=== PATIENT | male | born 1980 | race Caucasian/White ===

== ENCOUNTER → 2020-03-31 08:59 | Outpatient (BNVA) | payer MEDICAID, SELFPAY | PROVIDERS: Visit Provider Nurse Practitioner Family | DX: R55 Syncope and collapse (principal); R00.1 Bradycardia, unspecified | CPT/HCPCS: 36416; 82962 ==

== ENCOUNTER → 2020-08-23 15:59 | Outpatient (BNVA) | payer MEDICAID, SELFPAY | PROVIDERS: PCP Nurse Practitioner Family; Visit Provider Nurse Practitioner Family | DX: R07.9 Chest pain, unspecified (principal); I10 Essential (primary) hypertension; K21.9 Gastro-esophageal reflux disease without esophagitis | CPT/HCPCS: 80053; 80061; 84484; 85025 ==

== ENCOUNTER → 2020-08-24 09:22 | Outpatient (BNVA) | payer MEDICAID, SELFPAY | PROVIDERS: PCP Nurse Practitioner Family; Visit Provider Nurse Practitioner Family | DX: R07.9 Chest pain, unspecified (principal) | CPT/HCPCS: 71046 ==

== ENCOUNTER 2020-08-26 00:07 | Emergency (ER) | payer BC, MEDICAID, SELFPAY ==
[2020-08-26 00:10] VITALS: BP 114/70; PULSE 87; RESP 16; TEMP 36.8; O2SAT 98; BMI 31.0
--- NOTE | 2020-08-26 00:10 | ECG_ITS ---
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 Measurements Intervals [place] Rate: 60 P: 47 [place]: 155 QRS: 64 QRSD: 97 T: 60 QT: 369 QTc: 371 Interpretive Statements SINUS RHYTHM INTERPRETATION BASED ON A DEFAULT AGE OF 40 YEARS No previous ECG available for comparison Electronically Signed On 08-26-2020 18:28:39 WOOD SCRAP HANDLER by Michael Munoz M.D. [id number]
--- NOTE | 2020-08-26 00:10 | XR_ITS ---
WS: [id number] Exam: XR chest 1V portable [id number] Date/Time of Exam: 08/26/2020 12:11 AM Reason For Exam: cp Comparison 08/24/2020. Findings: The lungs are clear and fully expanded. Costophrenic angles are sharp. No infiltrates. Bronchovascula r relief appears normal. Cardiac silhouette is unremarkable. Bony elements are intact. XR/XR chest 1V portable [id number] IMPRESSION: Unremarkable chest radiograph.
--- NOTE | 2020-08-26 00:13 | W.ED.CHESTPA ---
HPI - Chest Pain General: Chief Complaint: Chest Pain Stated Complaint: chest pain Time Seen by Provider: 08/26/20 00:10 Source: patient and EMS Mode of arrival: EMS Limitations: no limitations History of Present Illness: HPI narrative: Celestine is a 40-year-old male who states he has been having chest pain since Saturday. He states is been episodic. He states that his left check and got worse tonight. He states that it radiates to his left arm. He states his pain is currently a 4 out of 10. Denies any worsening improving factors. Denies any nausea or shortness of breath. He does have a history of high blood pressure. He is a smoker. He denies any family history of heart disease. MD complaint: chest pain Onset (ago): day(s) Timing of current episode: episodic Associated symptoms: Deny abdominal pain, dyspnea, fever(s), nausea or vomiting Review of Systems Const: Denies: fever(s), chills, body aches or change in appetite Eyes: Denies: blurry vision or eye discomfort ENMT: Denies: throat pain or dental pain Card: Reports: chest pain Resp: Denies: dyspnea GI: Denies: abdominal pain, nausea, vomiting or diarrhea : Denies: dysuria Musc: Denies: neck pain or back pain Skin/Breast: Denies: rash Neuro: Denies: headache(s) Psych: Denies: depression Mic/Lymph: Denies: easy bruising All/Imm: Denies: urticaria PFSH ED PFSH: Medical History Essential hypertension Family History Other Chronic kidney disease (CKD) Diabetes Hypertension Social History Smoking and tobacco status: current every day smoker Alcohol intake: current Alcohol intake frequency: few times a month Adopted: No Lives independently: Yes Household members: spouse Housing: Manufactured/Mobile home Marital status: Highest education level completed: High School Graduate Current occupational status: employed 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 Current gender identity: Male Physical Exam Const: COMMON NORMALS: no acute distress, patient oriented x3 and healthy appearing HENMT: COMMON NORMALS: normocephalic and atraumatic HEAD & SCALP: normocephalic and atraumatic Eye: COMMON NORMALS: Equal, round and reactive pupils present and EOMs intact bilaterally PUPIL: Yes Equal, round and reactive pupils present Neck/C-Spine: COMMON NORMALS: full ROM and supple Chest: COMMONS NORMALS: normal inspection of the chest and normal palpation of entire chest wall Resp: COMMON NORMALS: normal respiratory effort, No retractions, No use of accessory muscles and clear to auscultation bilaterally AUSCULTATION: clear to auscultation bilaterally Cardio: COMMON NORMALS: regular rate, regular rhythm and No murmurs present (Cardio) RATE: regular rate RHYTHM: regular rhythm GI: COMMON NORMALS: Normal to inspection, nondistended, normoactive bowel sounds present, Soft to palpation, non-tender and no masses PALPATION: Yes Soft to palpation Extremity: COMMON NORMALS: normal to inspection and full ROM Neuro: COMMON NORMALS: patient oriented x3, moves all extremities and no focal motor deficits Psych: COMMON NORMALS: mental status grossly normal, Normal thought process present and cooperative THOUGHT PROCESS: Normal thought process present Skin: COMMON NORMALS: no rashes or lesions noted and no wounds GENERAL SKIN EXAM: no rashes or lesions noted Course Vital Signs: Vital signs: Vital Signs Temperature 98.3 F 08/26/20 00:10 Pulse Rate 87 08/26/20 00:10 Respiratory Rate 16 08/26/20 00:10 Blood Pressure 114/70 08/26/20 00:10 Pulse Oximetry 98 08/26/20 00:10 MDM - Chest Pain MDM Narrative: Medical decision making narrative: Patient presents here with chest pain. Patient is young is well-appearing here. Initial EKG and initial repeat troponins here are negative. He has no signs of acute coronary syndrome. Patient has no signs of pulmonary embolism or aortic dissection. Does have a slight leukocytosis but no signs of any infection and no fever or cough. Patient has follow-up with cardiology Lab Data: Labs: Lab Results 08/26/20 08/26/20 08/26/20 Range/Units 00:17 00:17 00:17 WBC 18.4 H (4.0-10.0) 10^3/ uL RBC 5.13 (4.1-5.3) 10^6/u L Hgb 15.2 (11.7-16.6) g/dL Hct 45.5 (42.0-52.0) % MCV 88.7 (80-94) fL MCH 29.6 (28.0-34.0) pg MCHC 33.4 (30.0-36.0) g/dL RDW 13.2 (12.1-15.1) % Plt Count 352 (130-400) 10^3/c mm MPV 9.7 (7.4-10.4) fL Neut % (Auto) 75.1 % Lymph % (Auto) 13.8 % Carlton % (Auto) 8.7 % Eos % (Auto) 1.4 % Baso % (Auto) 0.5 % Neut # (Auto) 13.87 H (1.8-7.7) 10^3/u L Lymph # (Auto) 2.5 (0.8-4.8) 10^3/u L Carlton # (Auto) 1.6 H (0.2-0.9) 10^3/u L Eos # (Auto) 0.3 (0.0-0.8) 10^3/u L Baso # (Auto) 0.1 (0.0-0.1) 10^3/u L Nucleated RBC % (a uto) 0 % Nucleated RBCs # 0.0 /100WBC Sodium 140 (136-145) mmol/L Potassium 3.8 (3.5-5.1) mmol/L Chloride 106 (98-107) mmol/L Carbon Dioxide 25 (22-29) mmol/L Anion Gap 12.8 (5-19) BUN 9 (6-20) mg/dL Creatinine 0.8 (0.7-1.2) mg/dL GFR Calculation 107.6 (90-130) mL/min Glucose 104 (65-115) mg/dL Calculated Osmolal ity 289 (285-295) mOsm/k g Calcium 9.6 (8.5-10.5) mg/dL Total Bilirubin 0.2 (0.15-1.2) mg/dL AST 17 (0-40) U/L ALT 28 (0-41) U/L Alkaline Phosphata se 133 H (40-130) IU/L Troponin T Baselin e 6 (0-15) ng/L Troponin T 120 Min altagracia (0-15) ng/L Delta Troponin T (0-10) ABS# Total Protein 6.9 (6.6-8.7) g/dL Albumin 4.4 (3.5-5.2) g/dL Globulin 2.5 (1.3-4.6) g/dL 08/26/20 Range/Units 02:15 WBC (4.0-10.0) 10^3/ uL RBC (4.1-5.3) 10^6/u L Hgb (11.7-16.6) g/dL Hct (42.0-52.0) % MCV (80-94) fL MCH (28.0-34.0) pg MCHC (30.0-36.0) g/dL RDW (12.1-15.1) % Plt Count (130-400) 10^3/c mm MPV (7.4-10.4) fL Neut % (Auto) % Lymph % (Auto) % Carlton % (Auto) % Eos % (Auto) % Baso % (Auto) % Neut # (Auto) (1.8-7.7) 10^3/u L Lymph # (Auto) (0.8-4.8) 10^3/u L Carlton # (Auto) (0.2-0.9) 10^3/u L Eos # (Auto) (0.0-0.8) 10^3/u L Baso # (Auto) (0.0-0.1) 10^3/u L Nucleated RBC % (a uto) % Nucleated RBCs # /100WBC Sodium (136-145) mmol/L Potassium (3.5-5.1) mmol/L Chloride (98-107) mmol/L Carbon Dioxide (22-29) mmol/L Anion Gap (5-19) BUN (6-20) mg/dL Creatinine (0.7-1.2) mg/dL GFR Calculation (90-130) mL/min Glucose (65-115) mg/dL Calculated Osmolal ity (285-295) mOsm/k g Calcium (8.5-10.5) mg/dL Total Bilirubin (0.15-1.2) mg/dL AST (0-40) U/L ALT (0-41) U/L Alkaline Phosphata se (40-130) IU/L Troponin T Baselin e (0-15) ng/L Troponin T 120 Min altagracia 6.00 (0-15) ng/L Delta Troponin T 0 (0-10) ABS# Total Protein (6.6-8.7) g/dL Albumin (3.5-5.2) g/dL Globulin (1.3-4.6) g/dL Imaging Data^: CXR: Attestation: I personally reviewed and interpreted this imaging study as follows: My impression: No acute abnormality EKG Data^: EKG 1: Attestation: I personally reviewed and interpreted this EKG as follows: EKG interpretation date: 08/26/20 EKG interpretation time: 00:14 Interpretation: nsr hr [address] or t wave abnormalities qrs 97 qtc 370 Discharge Plan Discharge Patient Disposition: Home Clinical Impression: Chest pain Qualifiers: Chest pain type: unspecified Qualified Code(s): R07.9 - Chest pain, unspecified Condition: Stable Prescriptions: No Action lisinopril 10 mg tablet 10 mg PO DAILY 30 Days Qty: 30 RF: 5 famotidine [Pepcid] 20 mg tablet 20 mg PO DAILY RF: 0 nitroglycerin 0.4 mg tablet, sublingual 0.4 mg sublingual Q5M PRN (Reason: chest pain) 30 Days Qty: 30 RF: 0 Discharge Orders: Discharge ED (Routine); Ordered 08/26/20 Ordered By: Agnieszka Tamayo Referrals: Rhona Armstrong FNP-C [Primary Care Provider] - Discharge Diet: Advance as tolerated Discharge Activity: Resume usual activity Patient Instructions: Chest Pain (ED) Coding Level of Care Code ED Insurance Policy Clerk for Chg Fwd Exam Comprehensive
[2020-08-26] MEDS: nitroglycerin 0.4 mg sublingual Tablet SUBLINGUAL (00:20)
[2020-08-26 00:26] LABS: Basophils # 0.1 10^3/uL (0.0-0.1); Basophils % 0.5 %; Eosinophils # 0.3 10^3/uL (0.0-0.8); Eosinophils % 1.4 %; Hematocrit 45.5 % (42.0-52.0); Hemoglobin 15.2 g/dL (11.7-16.6); Lymphocytes # 2.5 10^3/uL (0.8-4.8); Lymphocytes % 13.8 %; Mean Corpuscular HGB Conc 33.4 g/dL (30.0-36.0); Mean Corpuscular Hemoglobin 29.6 pg (28.0-34.0); Mean Corpuscular Volume 88.7 fL (80-94); Mean Platelet Volume 9.7 fL (7.4-10.4); Monocytes # 1.6 10^3/uL (0.2-0.9); Monocytes % 8.7 %; Neutrophils # 13.87 10^3/uL (1.8-7.7); Neutrophils % 75.1 %; Nucleated Red Blood Cells % 0 %; Platelet Count 352 10^3/cmm (130-400); Red Blood Count 5.13 10^6/uL (4.1-5.3); Red Cell Distribution Width 13.2 % (12.1-15.1); White Blood Count 18.4 10^3/uL (4.0-10.0)
[2020-08-26] MEDS: aspirin 81 mg Chew Tablet 324 MG PO (00:26)
[2020-08-26 00:44] LABS: Alanine Aminotransferase 28 U/L (0-41); Albumin Level 4.4 g/dL (3.5-5.2); Alkaline Phosphatase 133 IU/L (40-130); Anion Gap 12.8 (5-19); Aspartate Amino Transferase 17 U/L (0-40); Blood Urea Nitrogen 9 mg/dL (6-20); Calcium 9.6 mg/dL (8.5-10.5); Carbon Dioxide 25 mmol/L (22-29); Chloride 106 mmol/L (98-107); Globulin 2.5 g/dL (1.3-4.6); Glomerular Filtration Rate 107.6 mL/min (90-130); Glucose 104 mg/dL (65-115); Osmolality Calculated 289 mOsm/kg (285-295); Potassium 3.8 mmol/L (3.5-5.1); Sodium 140 mmol/L (136-145); Total Bilirubin 0.2 mg/dL (0.15-1.2); Total Protein 6.9 g/dL (6.6-8.7)
[2020-08-26 00:47] LABS: Troponin(5th) Baseline 6 ng/L (0-15)
[2020-08-26 02:58] LABS: Troponin 5 2HR Delta 0 ABS# (0-10)
[2020-08-26 03:16] VITALS: BP 125/77; PULSE 74; RESP 14; O2SAT 98
== END 2020-08-26 03:17 | disposition home or self-care (01) ==
PROVIDERS: Emergency Provider Emergency Medicine; PCP Nurse Practitioner Family
DX: R07.9 Chest pain, unspecified (principal); I10 Essential (primary) hypertension; F17.210 Nicotine dependence, cigarettes, uncomplicated
CPT/HCPCS: 12345; 71045; 80053; 84484; 85025; 93005; 99281; 99283

== ENCOUNTER 2020-09-07 10:15 | Emergency (ER) | payer BC, SELFPAY ==
[2020-09-07] VITALS (8 sets, daily range): BP systolic 104–120; BP diastolic 72–84; PULSE 55–69; RESP 13–21; TEMP 36.6; O2SAT 96–100; BMI 30.5
--- NOTE | 2020-09-07 10:36 | XR_ITS ---
WS: [id number] Portable AP upright chest, 09/07/2020 Clinical Data: chest pain Comparison: Portable chest, 08/26/2020 Findings: No nodules, masses or effusions are seen. The heart is normal. The pulmonary vascularity is not increased. No pneumonia or pneumothorax is seen. Monitor leads are on the chest wall. XR/XR chest 1V portable [id number] Impression: Negative chest.
--- NOTE | 2020-09-07 10:36 | ECG_ITS ---
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 Measurements Intervals [place] Rate: 63 P: 38 [place]: 157 QRS: 56 QRSD: 92 T: 52 QT: 392 QTc: 402 Interpretive Statements SINUS RHYTHM Compared to ECG 08/26/2020 00:14:53 No significant changes Electronically Signed On 09-07-2020 19:18:58 ANIMAL DAYCARE PROVIDER by Fara Zamora M.D. [id number]
--- NOTE | 2020-09-07 10:44 | W.ED.CHESTPA ---
Documented by User: FIDENCIO Fuller 09/07/20 17:18 HPI - Chest Pain General: Chief Complaint: Chest Pain Stated Complaint: CHEST PAIN Time Seen by Provider: 09/07/20 11:11 Source: patient and EMS Mode of arrival: EMS Limitations: no limitations History of Present Illness: HPI narrative: 40-year-old male patient presents to the emergency department with chest pain. He reports went to his primary care provider's office this morning due to chest pain. States pain was an 8/10, EMS called, aspirin and nitroglycerin administered with transport here to the ED. He reports could not tell if nitro helped with pain but he is currently pain-free at this time upon exam. He reports able to still feel pressure but states is not pain. Pressure is located to the left anterior chest wall. 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 He reports seen by cardiology here at [facility] with recommendation for stress test. He reports chest pain can be sharp or dull ache, does not experience nausea vomiting or diaphoresis; he denies fever chills cough congestion. MD complaint: chest pain, chest heaviness and chest discomfort Onset (ago): week(s) (2-3) Timing of current episode: episodic, daily and now resolved Prior episodes: Yes Onset: during rest Pain location: left chest Pain radiation: none Severity: similar to previous episodes Quality: aching, sharp and dull Relieving factors: nitroglycerin and other (aspirin) Exacerbating factors: other (unknown) Associated symptoms: Reports no associated symptoms; Deny abdominal pain, diaphoresis, dyspnea, fever(s), nausea, palpitations or vomiting Treatment prior to arrival: aspirin and nitroglycerin Review of Systems General: Reports: 10 or more systems reviewed and unremarkable except in HPI and below Const: Denies: fever(s), chills or diaphoresis Eyes: Denies: blurry vision or eye redness ENMT: Denies: throat pain, dental pain or disequilibrium Card: Reports: chest pain and lightheadedness; Denies: palpitations, irregular heart rhythm, swelling of feet/ankles, dyspnea on exertion or orthopnea Resp: Denies: dyspnea, productive cough, non-productive cough or wheezing GI: Denies: abdominal pain, nausea, vomiting, heartburn, diarrhea or constipation : Denies: difficulty urinating, dysuria, urinary urgency or nocturia Musc: Denies: back pain Skin/Breast: Denies: rash or pruritus Neuro: Denies: headache(s), weakness in extremities or behavioral changes Psych: Denies: anxiety, depression, sleeping more or change in appetite Mic/Lymph: Denies: easy bruising PFSH ED PFSH: Medical History Essential hypertension Family History Other Chronic kidney disease (CKD) Diabetes Hypertension Social History Smoking and tobacco status: current every day smoker cigarettes Alcohol intake: current Alcohol intake frequency: few times a month Adopted: No Lives independently: Yes Household members: spouse Housing: Manufactured/Mobile home Marital status: Highest education level completed: High School Graduate Current occupational status: employed 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 Current gender identity: Male Physical Exam Const: COMMON NORMALS: no acute distress, patient oriented x3, healthy appearing and alert EXAM LIMITATIONS: no altered mental status and no physical limitations GENERAL APPEARANCE: cooperative, comfortable, well kempt, well developed and well hydrated; not anxious, not ill appearing, not frail appearing and not diaphoretic NUTRITIONAL APPEARANCE: thin ORIENTATION/CONSCIOUSNESS: Yes awake, Yes oriented to person, Yes oriented to place and Yes oriented to time HENMT: COMMON NORMALS: normocephalic, atraumatic, Normal external nose present and moist oral mucous membranes HEAD & SCALP: normal to inspection, normocephalic and atraumatic FACE & SINUS: normal facial exam and face symmetric NOSE: Normal external nose present Eye: COMMON NORMALS: Equal, round and reactive pupils present and EOMs intact bilaterally GENERAL EYE: appearance normal, both eyes and all related structures PUPIL: Yes Equal, round and reactive pupils present Neck/C-Spine: COMMON NORMALS: full ROM, no lymphadenopathy and supple GENERAL: Yes normal visual inspection and Yes trachea midline CERVICAL SPINE: Yes cervical ROM normal Lymph: LYMPHATIC: no lymphadenopathy noted Chest: COMMONS NORMALS: normal inspection of the chest, normal palpation of entire chest wall and normal inspection of the breasts CHEST: Yes localized rib tenderness with anteroposterior compression (left anterior chest wall) Location: 1st rib, 2nd rib, 3rd rib, 4th rib and 5th rib and Yes tenderness Breast/axilla inspection: Yes no chest deformity, asymmetry, normal contours, no nodules, masses, tenderness, Yes normal inspection of the axillae and Yes normal inspection of the breasts BREAST/AXILLA PALPATION: Yes normal palpation of the axillae Resp: COMMON NORMALS: normal respiratory effort, No retractions, No use of accessory muscles and clear to auscultation bilaterally EFFORT & INSPECTION: Yes able to speak in complete sentences, No respiratory distress, No decreased respiratory effort, No segmental paradoxical chest wall movement and No audible wheezes AUSCULTATION: clear to auscultation bilaterally Cardio: COMMON NORMALS: regular rhythm, S1 normal heart sound present, S2 normal heart sound present and Peripheral pulses 2+ throughout RHYTHM: regular rhythm HEART SOUNDS: S1 normal heart sound present and S2 normal heart sound present PERIPHERAL PULSES: Peripheral pulses 2+ throughout GI: COMMON NORMALS: Normal to inspection, nondistended, normoactive bowel sounds present, Soft to palpation and non-tender INSPECTION: Yes normal to inspection PALPATION: Yes Soft to palpation : COMMON NORMALS: Yes no CVA tenderness BLADDER/KIDNEY EXAM: Yes no CVA tenderness Back/Pelvis: COMMON NORMALS: no CVA tenderness, thoracic and lumbar spine normal to inspection, no thoracic nor lumbar tenderness, thoraco-lumbar ROM normal and straight leg raise negative bilaterally Extremity: COMMON NORMALS: normal to inspection and capillary refill normal Neuro: COMMON NORMALS: patient oriented x3 and no focal motor deficits SENSORIUM/ORIENTATION: Yes alert, Yes oriented to person, Yes oriented to place and Yes oriented to time Psych: COMMON NORMALS: mental status grossly normal, Normal thought process present and cooperative APPEARANCE: Yes well kempt ACTIVITY/MOTOR BEHAVIOR: Yes appropriate eye contact THOUGHT PROCESS: Normal thought process present Skin: COMMON NORMALS: no rashes or lesions noted and turgor normal GENERAL SKIN EXAM: no rashes or lesions noted and turgor normal Course Vital Signs: Vital signs: Vital Signs Temperature 97.8 F 09/07/20 10:16 Pulse Rate 62 09/07/20 14:57 Respiratory Rate 13 09/07/20 14:57 Blood Pressure 115/83 09/07/20 14:57 Pulse Oximetry 99 09/07/20 14:57 MDM - Chest Pain Lab Data: Labs: Lab Results 09/07/20 09/07/20 09/07/20 Range/Units 10:45 10:45 10:45 WBC 11.6 H (4.0-10.0) 10^3/ uL RBC 5.38 H (4.1-5.3) 10^6/u L Hgb 15.6 (11.7-16.6) g/dL Hct 48.1 (42.0-52.0) % MCV 89.4 (80-94) fL MCH 29.0 (28.0-34.0) pg MCHC 32.4 (30.0-36.0) g/dL RDW 13.2 (12.1-15.1) % Plt Count 389 (130-400) 10^3/c mm MPV 9.7 (7.4-10.4) fL Neut % (Auto) 73.1 % Lymph % (Auto) 18.1 % [place] % (Auto) 6.8 % Eos % (Auto) 1.1 % Baso % (Auto) 0.5 % Neut # (Auto) 8.49 H (1.8-7.7) 10^3/u L Lymph # (Auto) 2.1 (0.8-4.8) 10^3/u L [place] # (Auto) 0.8 (0.2-0.9) 10^3/u L Eos # (Auto) 0.1 (0.0-0.8) 10^3/u L Baso # (Auto) 0.1 (0.0-0.1) 10^3/u L Nucleated RBC % (a uto) 0 % Nucleated RBCs # 0.0 /100WBC Sodium 139 (136-145) mmol/L Potassium 4.5 (3.5-5.1) mmol/L Chloride 106 (98-107) mmol/L Carbon Dioxide 25 (22-29) mmol/L Anion Gap 12.5 (5-19) BUN 9 (6-20) mg/dL Creatinine 0.6 L (0.7-1.2) mg/dL GFR Calculation 150.0 H (90-130) mL/min Glucose 107 (65-115) mg/dL Calculated Osmolal ity 287 (285-295) mOsm/k g Calcium 9.2 (8.5-10.5) mg/dL Total Bilirubin 0.4 (0.15-1.2) mg/dL AST 14 (0-40) U/L ALT 23 (0-41) U/L Alkaline Phosphata se 123 (40-130) IU/L Troponin T Baselin e 6 (0-15) ng/L Troponin T 120 Min [place] (0-15) ng/L Delta Troponin T (0-10) ABS# Total Protein 6.7 (6.6-8.7) g/dL Albumin 4.3 (3.5-5.2) g/dL Globulin 2.4 (1.3-4.6) g/dL 09/07/20 Range/Units 13:32 WBC (4.0-10.0) 10^3/ uL RBC (4.1-5.3) 10^6/u L Hgb (11.7-16.6) g/dL Hct (42.0-52.0) % MCV (80-94) fL MCH (28.0-34.0) pg MCHC (30.0-36.0) g/dL RDW (12.1-15.1) % Plt Count (130-400) 10^3/c mm MPV (7.4-10.4) fL Neut % (Auto) % Lymph % (Auto) % [place] % (Auto) % Eos % (Auto) % Baso % (Auto) % Neut # (Auto) (1.8-7.7) 10^3/u L Lymph # (Auto) (0.8-4.8) 10^3/u L [place] # (Auto) (0.2-0.9) 10^3/u L Eos # (Auto) (0.0-0.8) 10^3/u L Baso # (Auto) (0.0-0.1) 10^3/u L Nucleated RBC % (a uto) % Nucleated RBCs # /100WBC Sodium (136-145) mmol/L Potassium (3.5-5.1) mmol/L Chloride (98-107) mmol/L Carbon Dioxide (22-29) mmol/L Anion Gap (5-19) BUN (6-20) mg/dL Creatinine (0.7-1.2) mg/dL GFR Calculation (90-130) mL/min Glucose (65-115) mg/dL Calculated Osmolal ity (285-295) mOsm/k g Calcium (8.5-10.5) mg/dL Total Bilirubin (0.15-1.2) mg/dL AST (0-40) U/L ALT (0-41) U/L Alkaline Phosphata se (40-130) IU/L Troponin T Baselin e (0-15) ng/L Troponin T 120 Min [place] 6.00 (0-15) ng/L Delta Troponin T 0 (0-10) ABS# Total Protein (6.6-8.7) g/dL Albumin (3.5-5.2) g/dL Globulin (1.3-4.6) g/dL Discharge Plan Discharge Patient Disposition: Home Clinical Impression: Atypical chest pain, Anterior chest wall pain Condition: Stable Prescriptions: No Action famotidine [Pepcid] 20 mg tablet 20 mg PO DAILY@05 RF: 0 nitroglycerin 0.4 mg tablet, sublingual 0.4 mg sublingual Q5M PRN (Reason: chest pain) 30 Days Qty: 30 RF: 0 Aspir-81 81 mg Tablet,Delayed Release (Dr/Ec) 81 mg PO DAILY@05 RF: 0 lisinopril 10 mg tablet 10 mg PO DAILY@05 RF: 0 Discharge Orders: Discharge ED (Routine); Ordered 09/07/20 Ordered By: Mike Chiu Referrals: Rhona Armstrong FNP-C [Primary Care Provider] - Discharge Diet: Usual diet Discharge Activity: Resume usual activity Activity Restrictions/Additional Instructions: Continue to take aspirin daily. Proceed with stress test as previously scheduled. No change in medications. Coding Level of Care Code ED Medical Administrative Specialist for Chg Fwd Exam Comprehensive Documented by User: Mike Chiu DO 09/07/20 14:59 HPI - Chest Pain General: Chief Complaint: Chest Pain Stated Complaint: CHEST PAIN Time Seen by Provider: 09/07/20 11:11 History of Present Illness: HPI narrative: 40-year-old male presents emergency room with complaint of chest pain. He was given nitro and aspirin. He was seen previously for episode of chest pain on arrival here he has no chest pain is resolved and he has some reproducibility of his chest pain with palpation on his left anterior chest wall. He denies nausea vomiting or shortness of breath. He had some of these episodes yesterday as well. He was given aspirin and nitroglycerin by EMS but he does not really specifically correlate improvement with the nitro. He is not had any cough or shortness of breath or productive cough. He was seen in the ER on August 26 Dr. Galan and ordered a sestamibi stress test. He has not had that done yet. In the office notes it said they were ordering a stress test. The patient he was under the impression he was not going to have a stress test, when case manage reviewed the prior authorization is pending. MD complaint: chest pain Onset (ago): week(s) (2) Timing of current episode: episodic and now resolved Prior episodes: Yes Onset: during rest and during exertion Pain location: left chest (Upper chest) Severity: moderate Quality: sharp Relieving factors: nothing Exacerbating factors: nothing Associated symptoms: Deny abdominal pain, diaphoresis, dyspnea, fever(s), leg edema, nausea, palpitations, sense of impending doom, syncope or vomiting Treatment prior to arrival: nitroglycerin and oxygen Review of Systems Const: Denies: fever(s) or diaphoresis Card: Denies: palpitations or syncope Resp: Denies: dyspnea GI: Denies: abdominal pain, nausea or vomiting : Denies: flank pain, dysuria, urinary frequency or urinary urgency Skin/Breast: Denies: rash or pruritus [facility] ED PFSH: Medical History Essential hypertension Family History Other Chronic kidney disease (CKD) Diabetes Hypertension Social History Smoking and tobacco status: current every day smoker cigarettes Alcohol intake: current Alcohol intake frequency: few times a month Adopted: No Lives independently: Yes Household members: spouse Housing: Manufactured/Mobile home Marital status: Highest education level completed: High School Graduate Current occupational status: employed 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 No crepitus) and Yes tenderness (Left upper chest) Resp: COMMON NORMALS: normal respiratory effort, No retractions, No use of accessory muscles and clear to auscultation bilaterally AUSCULTATION: clear to auscultation bilaterally Cardio: COMMON NORMALS: no JVD, regular rate, regular rhythm and No murmurs present (Cardio) RATE: regular rate RHYTHM: regular rhythm GI: COMMON NORMALS: Soft to palpation and No hepatosplenomegaly present AUSCULTATION: Yes normoactive bowel sounds PALPATION: Yes Soft to palpation, No Tenderness to palpation present (GI), No Guarding due to palpation present (GI) and Yes No hepatosplenomegaly present Extremity: COMMON NORMALS: normal to inspection, capillary refill normal, no clubbing, cyanosis or edema, no calf tenderness and no pedal edema Neuro: SENSORIUM/ORIENTATION: Yes oriented to person, Yes oriented to place and Yes oriented to time Skin: COMMON NORMALS: no rashes or lesions noted NARRATIVE SKIN EXAM: No evidence of skin rash or dermatomal rash on the chest. No palpable masses or abscesses. GENERAL SKIN EXAM: no rashes or lesions noted Course Vital Signs: Vital signs: Vital Signs Temperature 97.8 F 09/07/20 10:16 Pulse Rate 62 09/07/20 14:57 Respiratory Rate 13 09/07/20 14:57 Blood Pressure 115/83 09/07/20 14:57 Pulse Oximetry 99 09/07/20 14:57 MDM - Chest Pain MDM Narrative: Medical decision making narrative: Patient has no tachycardia his sats were normal the entire time we monitored him. Chest x-ray is unremarkable there is no widening mediastinum no evidence of pneumonia or pneumothorax. EKG shows some early repole changes reviewed in comparison to his previous EKGs and discussed with Dr. Munoz after sending him the EKGs. He does not feel they represent anything acute. His troponin is negative initial and delta is negative. Patient is quite frustrated that were not able to find anything at this point. Reviewed with him the differential diagnosis. At this point I would still recommend that he proceed with the stress test. We tried to find when it was scheduled however it appears that is held up with the prior authorization. We will have him continue his current medications as previously prescribed gave him a note for work. If you have worsening or change symptoms he can certainly return. I would follow-up with Dr. Munoz as scheduled. If this persists and the stress test is negative he may need to have further evaluation including EGD or referral to orthopedics for musculoskeletal issues. Lab Data: Labs: Lab Results 09/07/20 09/07/20 09/07/20 Range/Units 10:45 10:45 10:45 WBC 11.6 H (4.0-10.0) 10^3/ uL RBC 5.38 H (4.1-5.3) 10^6/u L Hgb 15.6 (11.7-16.6) g/dL Hct 48.1 (42.0-52.0) % MCV 89.4 (80-94) fL MCH 29.0 (28.0-34.0) pg MCHC 32.4 (30.0-36.0) g/dL RDW 13.2 (12.1-15.1) % Plt Count 389 (130-400) 10^3/c mm MPV 9.7 (7.4-10.4) fL Neut % (Auto) 73.1 % Lymph % (Auto) 18.1 % [place] % (Auto) 6.8 % Eos % (Auto) 1.1 % Baso % (Auto) 0.5 % Neut # (Auto) 8.49 H (1.8-7.7) 10^3/u L Lymph # (Auto) 2.1 (0.8-4.8) 10^3/u L [place] # (Auto) 0.8 (0.2-0.9) 10^3/u L Eos # (Auto) 0.1 (0.0-0.8) 10^3/u L Baso # (Auto) 0.1 (0.0-0.1) 10^3/u L Nucleated RBC % (a uto) 0 % Nucleated RBCs # 0.0 /100WBC Sodium 139 (136-145) mmol/L Potassium 4.5 (3.5-5.1) mmol/L Chloride 106 (98-107) mmol/L Carbon Dioxide 25 (22-29) mmol/L Anion Gap 12.5 (5-19) BUN 9 (6-20) mg/dL Creatinine 0.6 L (0.7-1.2) mg/dL GFR Calculation 150.0 H (90-130) mL/min Glucose 107 (65-115) mg/dL Calculated Osmolal ity 287 (285-295) mOsm/k g Calcium 9.2 (8.5-10.5) mg/dL Total Bilirubin 0.4 (0.15-1.2) mg/dL AST 14 (0-40) U/L ALT 23 (0-41) U/L Alkaline Phosphata se 123 (40-130) IU/L Troponin T Baselin e 6 (0-15) ng/L Troponin T 120 Min [place] (0-15) ng/L Delta Troponin T (0-10) ABS# Total Protein 6.7 (6.6-8.7) g/dL Albumin 4.3 (3.5-5.2) g/dL Globulin 2.4 (1.3-4.6) g/dL 09/07/20 Range/Units 13:32 WBC (4.0-10.0) 10^3/ uL RBC (4.1-5.3) 10^6/u L Hgb (11.7-16.6) g/dL Hct (42.0-52.0) % MCV (80-94) fL MCH (28.0-34.0) pg MCHC (30.0-36.0) g/dL RDW (12.1-15.1) % Plt Count (130-400) 10^3/c mm MPV (7.4-10.4) fL Neut % (Auto) % Lymph % (Auto) % [place] % (Auto) % Eos % (Auto) % Baso % (Auto) % Neut # (Auto) (1.8-7.7) 10^3/u L Lymph # (Auto) (0.8-4.8) 10^3/u L [place] # (Auto) (0.2-0.9) 10^3/u L Eos # (Auto) (0.0-0.8) 10^3/u L Baso # (Auto) (0.0-0.1) 10^3/u L Nucleated RBC % (a uto) % Nucleated RBCs # /100WBC Sodium (136-145) mmol/L Potassium (3.5-5.1) mmol/L Chloride (98-107) mmol/L Carbon Dioxide (22-29) mmol/L Anion Gap (5-19) BUN (6-20) mg/dL Creatinine (0.7-1.2) mg/dL GFR Calculation (90-130) mL/min Glucose (65-115) mg/dL Calculated Osmolal ity (285-295) mOsm/k g Calcium (8.5-10.5) mg/dL Total Bilirubin (0.15-1.2) mg/dL AST (0-40) U/L ALT (0-41) U/L Alkaline Phosphata se (40-130) IU/L Troponin T Baselin e (0-15) ng/L Troponin T 120 Min [place] 6.00 (0-15) ng/L Delta Troponin T 0 (0-10) ABS# Total Protein (6.6-8.7) g/dL Albumin (3.5-5.2) g/dL Globulin (1.3-4.6) g/dL Discharge Plan Discharge Patient Disposition: Home Clinical Impression: Atypical chest pain, Anterior chest wall pain Condition: Stable Prescriptions: No Action famotidine [Pepcid] 20 mg tablet 20 mg PO DAILY@05 RF: 0 nitroglycerin 0.4 mg tablet, sublingual 0.4 mg sublingual Q5M PRN (Reason: chest pain) 30 Days Qty: 30 RF: 0 Aspir-81 81 mg Tablet,Delayed Release (Dr/Ec) 81 mg PO DAILY@05 RF: 0 lisinopril 10 mg tablet 10 mg PO DAILY@05 RF: 0 Discharge Orders: Discharge ED (Routine); Ordered 09/07/20 Ordered By: Mike Chiu Referrals: Rhona Armstrong FNP-C [Primary Care Provider] - Discharge Diet: Usual diet Discharge Activity: Resume usual activity Activity Restrictions/Additional Instructions: Continue to take aspirin daily. Proceed with stress test as previously scheduled. No change in medications. Coding Level of Care Code ED Medical Administrative Specialist for Ben Fwd Exam Comprehensive
[2020-09-07 10:52] LABS: Basophils # 0.1 10^3/uL (0.0-0.1); Basophils % 0.5 %; Eosinophils # 0.1 10^3/uL (0.0-0.8); Eosinophils % 1.1 %; Hematocrit 48.1 % (42.0-52.0); Hemoglobin 15.6 g/dL (11.7-16.6); Lymphocytes # 2.1 10^3/uL (0.8-4.8); Lymphocytes % 18.1 %; Mean Corpuscular HGB Conc 32.4 g/dL (30.0-36.0); Mean Corpuscular Volume 89.4 fL (80-94); Mean Platelet Volume 9.7 fL (7.4-10.4); Monocytes # 0.8 10^3/uL (0.2-0.9); Monocytes % 6.8 %; Neutrophils # 8.49 10^3/uL (1.8-7.7); Neutrophils % 73.1 %; Nucleated Red Blood Cells % 0 %; Platelet Count 389 10^3/cmm (130-400); Red Blood Count 5.38 10^6/uL (4.1-5.3); Red Cell Distribution Width 13.2 % (12.1-15.1); White Blood Count 11.6 10^3/uL (4.0-10.0)
[2020-09-07 11:38] LABS: Troponin(5th) Baseline 6 ng/L (0-15)
[2020-09-07 11:39] LABS: Alanine Aminotransferase 23 U/L (0-41); Albumin Level 4.3 g/dL (3.5-5.2); Alkaline Phosphatase 123 IU/L (40-130); Anion Gap 12.5 (5-19); Aspartate Amino Transferase 14 U/L (0-40); Blood Urea Nitrogen 9 mg/dL (6-20); Calcium 9.2 mg/dL (8.5-10.5); Carbon Dioxide 25 mmol/L (22-29); Chloride 106 mmol/L (98-107); Globulin 2.4 g/dL (1.3-4.6); Glucose 107 mg/dL (65-115); Osmolality Calculated 287 mOsm/kg (285-295); Potassium 4.5 mmol/L (3.5-5.1); Sodium 139 mmol/L (136-145); Total Bilirubin 0.4 mg/dL (0.15-1.2); Total Protein 6.7 g/dL (6.6-8.7)
--- NOTE | 2020-09-07 12:36 | ECG_ITS ---
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 Measurements Intervals [place] Rate: 52 P: 44 AK: 155 QRS: 57 QRSD: 96 T: 47 QT: 419 QTc: 392 Interpretive Statements SINUS BRADYCARDIA WITH OCCASIONAL SUPRAVENTRICULAR PREMATURE COMPLEXES ST ELEVATION, PROBABLY EARLY REPOLARIZATION [ST ELEVATION WITH NORMALLY INFLECTED T WAVE] Compared to ECG 09/07/2020 10:20:19 ST (T wave) deviation now present Early repolarization now present Sinus rhythm no longer present Electronically Signed On 09-07-2020 19:21:20 CLOUD ENGAGEMENT PARTNER by Fara Zamora M.D. [id number]
[2020-09-07 14:10] LABS: Troponin 5 2HR Delta 0 ABS# (0-10)
== END 2020-09-07 14:57 | disposition home or self-care (01) ==
PROVIDERS: Emergency Provider Family Medicine; PCP Nurse Practitioner Family
DX: R07.89 Other chest pain (principal); Z79.82 Long term (current) use of aspirin; I10 Essential (primary) hypertension; F17.210 Nicotine dependence, cigarettes, uncomplicated
CPT/HCPCS: 12345; 71045; 80053; 84484; 85025; 93005; 99283

== ENCOUNTER → 2020-09-15 16:12 | Outpatient (BNVA) | payer BC, MEDICAID, SELFPAY | PROVIDERS: PCP Nurse Practitioner Family; Visit Provider Nurse Practitioner | DX: R07.9 Chest pain, unspecified (principal) | CPT/HCPCS: 93005 ==

== ENCOUNTER → 2020-09-19 08:28 | Outpatient (BNVA) | payer MEDICAID, SELFPAY | PROVIDERS: PCP Nurse Practitioner Family; Visit Provider Nurse Practitioner | DX: R07.9 Chest pain, unspecified (principal); I10 Essential (primary) hypertension; E55.9 Vitamin D deficiency, unspecified | CPT/HCPCS: 82306; 83735; 84443; 85025 ==

== ENCOUNTER 2020-09-23 06:57 | Outpatient (CLI) | payer BC, MEDICAID, SELFPAY ==
--- NOTE | 2020-09-23 07:15 | USCV_ITS ---
Celestine Funez Age: 40 Gender: M : 1980 Exam Date: 09/23/2020 07:22 Ordering Phys: Regulo Thomas Technologist: Delmis Vigil [place]am [place] [facility] [place]ication: CHEST PAIN BP: 100 / 53 HR: 56 Rhythm: Sinus Technical Quality: Adequate MEASUREMENTS (Male / Female) Normal Values 2D ECHO LV Diastolic Diameter PLAX 3.6 cm 4.2 - 5.9 / 3.9 - 5.3 cm LV Systolic Diameter PLAX 2.3 cm LV Chamber Size 3.2 cm IVS Diastolic Thickness 1.1 cm 0.6 - 1.0 / 0.6 - 0.9 cm IVS Systolic Thickness 1.4 cm LVPW Diastolic Thickness 1.4 cm 0.6 - 1.0 / 0.6 - 0.9 cm LVPW Systolic Thickness 1.5 cm RV Chamber Size 4.1 cm LVOT Diameter 2.1 cm LV Ejection Fraction 2D Teich 67.2 % LV Ejection Fraction MOD 2C 54.2 % LV Ejection Fraction 2C AL 54.3 % LA Diameter 3.4 cm LA Width 3.4 cm LA Height 3.4 cm RA Width 3.2 cm RA Height 4.0 cm Aorta at Sinotubular Diameter 3.0 cm M-MODE LV Diastolic Diameter MM 5.1 cm 4.2 - 5.9 / 3.9 - 5.3 cm LV Systolic Diameter MM 3.5 cm LV Ejection Fraction MM Teich 58.4 % IVS Diastolic Thickness MM 0.5 cm 0.6 - 1.0 / 0.6 - 0.9 cm IVS Systolic Thickness MM 1.0 cm LVPW Diastolic Thickness MM 0.9 cm 0.6 - 1.0 / 0.6 - 0.9 cm LVPW Systolic Thickness MM 1.4 cm Aortic Annulus Diameter 2.7 cm LA Ao Ratio MM 1.3 MV E Point Septal Separation 0.4 cm DOPPLER AV Peak Velocity 118.3 cm/s LVOT Peak Velocity 105.7 cm/s AV Area Cont Eq vti 2.9 cm squared AV Area Cont Eq pk 3.0 cm squared MV Area PHT 2.7 cm squared Mitral E to A Ratio 2.1 MV E' Velocity 57.0 cm/s Mitral E to MV E' Ratio 5.3 Mitral E to LV E' Lateral Ratio 4.7 Mitral E to LV E' Septal Ratio 6.1 TR Peak Velocity 187.0 cm/s TR Peak Gradient 14.0 mmHg TV Peak E Velocity 72.0 cm/s Right Atrial Pressure 3.0 mmHg Pulmonary Artery Systolic Pressu 17.0 mmHg PV Peak Velocity 80.0 cm/s RV Acceleration Time 0.2 s RV Ejection Time 0.4 s RV AcT/ET 0.5 FINDINGS Left Ventricle Normal left ventricular size and systolic function with no regional wall motion abnormalities. LVEF is 55 to 60%. Normal diastolic function. Right Ventricle The right ventricle is normal in size and function. Right Atrium The right atrium is normal in size. Left Atrium The left atrium is normal in size. Mitral Valve Structurally normal mitral valve without significant stenosis or prolapse. There is no mitral regurgitation. Aortic Valve Structurally normal aortic valve without significant sclerosis or stenosis. There is no aortic regurgitation. Tricuspid Valve Structurally normal tricuspid valve without significant stenosis. Trace tricuspid regurgitation.. Insufficient TR jet to calculate RVSP. Pulmonic Valve Structurally normal pulmonic valve without significant stenosis. There is no pulmonic regurgitation. Pericardium Normal pericardium without effusion. Aorta Normal ascending aorta dimension. CONCLUSIONS LV systolic function is normal with EF of 55 to 60%. Diastolic function is normal. No significant valvular heart disease. No comparison studies are available. Michael Munoz MD (Electronically Signed) Final Date: 28 September 2020 16:07 S
== END 2020-09-23 06:58 | disposition home or self-care (01) ==
LOC: US 06:58
PROVIDERS: PCP Nurse Practitioner Family; Visit Provider Nurse Practitioner
DX: R07.9 Chest pain, unspecified (principal)
CPT/HCPCS: 93306

== ENCOUNTER 2020-09-29 06:38 | Outpatient (CLI) | payer BC, MEDICAID, SELFPAY ==
--- NOTE | 2020-09-29 07:15 | US_ITS ---
WS: [id number] Complete ABDOMINAL ULTRASOUND HISTORY: R10.9 - Unspecified abdominal pain COMPARISON: None available. Liver: 16.4 cm in length. Liver is normal size and echogenicity with no mass or intrahepatic dilatati on. Gallbladder: Normally distended with no gallstones, wall thickening or pericholecystic fluid. Gallbladder wall thickness: 0.2 cm. Pancreas: Normal size and echogenicity. CBD: 0.3 cm. Right kidney: 11.2 cm x 6.5 cm x 5.7 cm. No mass, cortical thickening or hydronephrosis. Left kidney: 11.0 cm x 6.6 cm x 4.3 cm. No mass, cortical thickening or hydronephrosis. Spleen: Normal size spleen with scattered increased foci which are probably granulomatous. Abdominal aorta and IVC are within normal limits. No ascites. US/US abdomen complete* [id number] IMPRESSION: Normal complete abdomen ultrasound.
== END 2020-09-29 06:39 | disposition home or self-care (01) ==
LOC: RAD 06:40
PROVIDERS: PCP Nurse Practitioner Family; Visit Provider Nurse Practitioner
DX: R10.9 Unspecified abdominal pain (principal)
CPT/HCPCS: 76700

== ENCOUNTER 2020-10-01 22:28 | Emergency (ER) | payer BC, MEDICAID, SELFPAY ==
[2020-10-01 22:29] VITALS: BP 129/74; PULSE 51; RESP 16; TEMP 36.6; O2SAT 97; BMI 31.3
[2020-10-01 22:40] VITALS: BP 132/81; PULSE 58; RESP 18; O2SAT 97
--- NOTE | 2020-10-01 22:41 | XRR_ITS ---
PROCEDURE INFORMATION: Exam: XR Chest, 1 View Exam date and time: 10/01/2020 10:42 PM Age: 40 years old Clinical indication: Chest pain; Additional info: Cp TECHNIQUE: Imaging protocol: XR of the chest Views: 1 view. COMPARISON: CR XR chest 1V portable [id number] 09/07/2020 10:38 AM FINDINGS: Lungs: Unremarkable. No consolidation. Pleural spaces: Unremarkable. No pleural effusion. No pneumothorax. Heart/Mediastinum: Unremarkable. No cardiomegaly. Bones/joints: Unremarkable. XR/XR chest 1V portable [id number] IMPRESSION: No acute findings.
--- NOTE | 2020-10-01 22:42 | ECG_ITS ---
[facility] Test Date: 2020-10-01 Pat Name: Celestine Funez Department: Room: Gender: Male Paper Machine Back Tender: : 1980 Requested By: Kizzy Patrick Order Number: [id number] Reading MD: GILSON GARCIA Measurements Intervals [place] Rate: 55 P: 46 WV: 153 QRS: 55 QRSD: 93 T: 49 QT: 401 QTc: 385 Interpretive Statements SINUS BRADYCARDIA Compared to ECG 09/07/2020 12:36:38 ST (T wave) deviation no longer present Early repolarization no longer present Electronically Signed On 10-02-2020 21:18:28 BANDMILL OPERATOR by GILSON GARCIA [id number]
--- NOTE | 2020-10-01 22:45 | ED_ITS ---
HPI - Chest Pain General: Chief Complaint: Chest Pain Stated Complaint: CHEST PAIN Time Seen by Provider: 10/01/20 22:29 Source: patient and EMS Mode of arrival: EMS Limitations: no limitations History of Present Illness: HPI narrative: 40-year-old male patient presents to the emergency department with 3-hour onset of chest pain. He reports was sitting on the couch relaxing at the onset. He states pain is located on the left anterior chest wall. He reports did experience shortness of breath with nausea, EMS provided antinausea medication which resolved the nausea. He re ports pain remains 7 out of 10 upon exam, per EMS, there was a 1 hour transport to the facility, during that time he was sinus rhythm to sinus bradycardic upon ECG monitoring, states patient did drop down in the 40s a couple of times, but that was after administration of nitroglycerin tablet. Nitroglycerin tablet did not change his pain. Patient has experienced 3-month onset of chest pain in the past with cardiology follow-up. He reports no one can seem to figure out the cause of his pain. He did state was treated for an infection in his chest as the left side of his chest wall seems to enlarge at times. He reports antibiotics did not help. He reports left side of his chest remains somewhat swollen. He states ultrasound did not reveal any abnormality. States nothing makes his chest pain worse nothing makes it better. He states comes and goes on its own. 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 He reports had abdominal ultrasound completed this week, findings were normal. MD complaint: chest pain and chest discomfort Timing of current episode: episodic Prior episodes: Yes Onset: during rest Pain location: left chest Pain radiation: neck Severity: mild Quality: heaviness and dull Relieving factors: nothing Associated symptoms: Reports nausea and other (Lightheadedness); Deny abdominal pain, diaphoresis, dyspnea, fever(s), palpitations or vomiting Treatment prior to arrival: other (Zofran, aspirin) Review of Systems General: Reports: 10 or more systems reviewed and unremarkable except in HPI and below Const: Denies: fever(s), chills, fatigue, malaise or diaphoresis Eyes: Denies: blurry vision or eye redness ENMT: Denies: throat pain, dental pain or disequilibrium Card: Reports: chest pain, lightheadedness and dyspnea on exertion; Denies: palpitations, irregular heart rhythm, swelling of feet/ankles, orthopnea or leg pain with exertion Resp: Denies: dyspnea, productive cough, non-productive cough or wheezing GI: Reports: nausea; Denies: abdominal pain, vomiting, heartburn, diarrhea or constipation : Denies: dysuria Musc: Denies: neck pain, back pain, extremity pain, muscle cramps or muscle weakness Skin/Breast: Reports: skin swelling (left chest wall) and breast tenderness (left); Denies: rash, pruritus or skin tenderness Neuro: Denies: headache(s), weakness in extremities or behavioral changes Psych: Denies: anxiety or depression Mic/Lymph: Denies: easy bruising PFSH ED PFSH: Medical History Essential hypertension Surgical History No history of previous surgery Family History Other Chronic kidney disease (CKD) Diabetes Hypertension Social History Smoking and tobacco status: current every day smoker cigarettes Alcohol intake: current Alcohol intake frequency: few times a month Adopted: No Lives independently: Yes Household members: spouse Housing: Manufactured/Mobile home Marital status: Highest education level completed: High School Graduate Current occupational status: employed 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 Current gender identity: Male Physical Exam Const: COMMON NORMALS: no acute distress, patient oriented x3, healthy appearing, alert and well nourished GENERAL APPEARANCE: cooperative, well kempt, well developed, anxious and well hydrated; not ill appearing and not frail appearing NUTRITIONAL APPEARANCE: thin ORIENTATION/CONSCIOUSNESS: Yes awake, Yes oriented to person, Yes oriented to place and Yes oriented to time HENMT: COMMON NORMALS: normocephalic, atraumatic, Normal external nose present and moist oral mucous membranes HEAD & SCALP: normal to inspection, normocephalic and atraumatic FACE & SINUS: normal facial exam and face symmetric NOSE: Normal external nose present THROAT: posterior oropharynx normal and uvula midline Eye: COMMON NORMALS: Equal, round and reactive pupils present and EOMs intact bilaterally GENERAL EYE: appearance normal, both eyes and all related structures PUPIL: Yes Equal, round and reactive pupils present Neck/C-Spine: COMMON NORMALS: full ROM and no lymphadenopathy GENERAL: Yes normal visual inspection and Yes trachea midline CERVICAL SPINE: Yes cervical ROM normal Lymph: LYMPHATIC: no lymphadenopathy noted Chest: COMMONS NORMALS: normal inspection of the chest and normal inspection of the breasts CHEST: Yes Symmetrical chest wall rise, Yes localized rib tenderness with anteroposterior compression Location: 2nd rib, 3rd rib, 4th rib, 5th rib and 6th rib and Yes tenderness pectoral muscle on the left Breast/axilla inspection: Yes normal inspection of the breasts BREAST/AXILLA PALPATION: Yes other (left breast tenderness noted) Resp: COMMON NORMALS: normal respiratory effort, No retractions, No use of accessory muscles and clear to auscultation bilaterally EFFORT & INSPECTION: Yes able to speak in complete sentences, No pursed lip breathing and No audible wheezes AUSCULTATION: clear to auscultation bilaterally, no wheezes and lung sounds not diminished Cardio: COMMON NORMALS: regular rate, regular rhythm, S1 normal heart sound present, S2 normal heart sound present and Peripheral pulses 2+ throughout RATE: regular rate and bradycardic RHYTHM: regular rhythm HEART SOUNDS: S1 normal heart sound present and S2 normal heart sound present PERIPHERAL PULSES: Peripheral pulses 2+ throughout GI: COMMON NORMALS: Normal to inspection, nondistended, normoactive bowel sounds present, Soft to palpation and non-tender INSPECTION: Yes normal to inspection, No abdominal wall ecchymosis, No central obesity and No visible herniation PALPATION: Yes Soft to palpation : COMMON NORMALS: Yes no CVA tenderness BLADDER/KIDNEY EXAM: Yes no CVA tenderness Back/Pelvis: COMMON NORMALS: no CVA tenderness and thoracic and lumbar spine normal to inspection Extremity: COMMON NORMALS: normal to inspection and capillary refill normal Neuro: COMMON NORMALS: patient oriented x3 and no focal motor deficits SENSORIUM/ORIENTATION: Yes alert, Yes oriented to person, Yes oriented to place and Yes oriented to time Psych: COMMON NORMALS: mental status grossly normal, Normal thought process present and cooperative APPEARANCE: Yes well kempt ACTIVITY/MOTOR BEHAVIOR: Yes appropriate eye contact THOUGHT PROCESS: Normal thought process present Skin: COMMON NORMALS: no rashes or lesions noted and turgor normal GENERAL SKIN EXAM: no rashes or lesions noted and turgor normal Course Vital Signs: Vital signs: Vital Signs Temperature 97.8 F 10/01/20 22:29 Pulse Rate 56 L 10/02/20 00:40 Respiratory Rate 16 10/02/20 00:40 Blood Pressure 127/82 10/02/20 00:40 Pulse Oximetry 97 10/02/20 00:40 MDM - Chest Pain MDM Narrative: Medical decision making narrative: Pleasant 40-year-old male patient presents to the emergency department with 3-month history of chest pain. Chest pain started tonight around 7 PM. He did not take nitroglycerin but did call EMS for transport to the hospital. During transport he received nitroglycerin which dropped his heart rate into the 40s. He states became lightheaded after administration of nitro. He has state cardiology consult with follow-up appointment in 6 months, echocardiogram completed 09/23/2020 with normal LV function with EF of 55 to 60%. No acute abnormalities were noted. EKG completed tonight without acute change, troponin 6, slight elevation of wh ite blood count 12.1 without other abnormalities, chemistry unremarkable. His BNP was 45, D-dimer less than 0.27, cardiac monitoring during his stay revealed sinus rhythm to sinus bradycardia, upper 50s. Oxygen saturation remained 96 to 100% on room air. Due to his concern of left chest wall swelling with previous ultrasound that did not reveal abnormality, CT scan of the chest completed due to continued complaints of chest pain. Findings consistent with esophagitis/esophageal thickening, and old granulomatous disease. Patient remains on Protonix and Carafate, remains with esophageal thickening, plan to arrange follow-up with Dr. Campoverde for EGD. I will also request pulmonology consult for granulomatous disease as additional abnormalities were noted in the spleen. He agrees for follow-up with specialty services. Advised to return to the emergency department if he develops additional concerns, he requested Toradol injection as this is what helps his chest pain the best. Lab Data: Labs: Lab Results 10/01/20 10/01/20 10/01/20 Range/Units 22:37 22:37 22:37 WBC 12.7 H (4.0-10.0) 10^3/ uL RBC 4.90 (4.1-5.3) 10^6/u L Hgb 14.2 (11.7-16.6) g/dL Hct 43.4 (42.0-52.0) % MCV 88.6 (80-94) fL MCH 29.0 (28.0-34.0) pg MCHC 32.7 (30.0-36.0) g/dL RDW 12.9 (12.1-15.1) % Plt Count 336 (130-400) 10^3/c mm MPV 10.3 (7.4-10.4) fL Neut % (Auto) 56.6 % Lymph % (Auto) 30.5 % [place] % (Auto) 8.8 % Eos % (Auto) 3.2 % Baso % (Auto) 0.5 % Neut # (Auto) 7.17 (1.8-7.7) 10^3/u L Lymph # (Auto) 3.9 (0.8-4.8) 10^3/u L [place] # (Auto) 1.1 H (0.2-0.9) 10^3/u L Eos # (Auto) 0.4 (0.0-0.8) 10^3/u L Baso # (Auto) 0.1 (0.0-0.1) 10^3/u L Nucleated RBC % (a uto) 0 % Nucleated RBCs # 0.0 /100WBC D-Dimer <= 0.27 (0-0.59) ug/mIFE U Sodium 139 (136-145) mmol/L Potassium 3.9 (3.5-5.1) mmol/L Chloride 105 (98-107) mmol/L Carbon Dioxide 25 (22-29) mmol/L Anion Gap 12.9 (5-19) BUN 11 (6-20) mg/dL Creatinine 0.7 (0.7-1.2) mg/dL GFR Calculation 125.5 (90-130) mL/min Glucose 98 (65-115) mg/dL Calculated Osmolal ity 287 (285-295) mOsm/k g Calcium 9.1 (8.5-10.5) mg/dL Total Bilirubin 0.2 (0.15-1.2) mg/dL AST 15 (0-40) U/L ALT 22 (0-41) U/L Alkaline Phosphata se 113 (40-130) IU/L Troponin T Baselin e (0-15) ng/L Troponin T 120 Min [place] (0-15) ng/L Delta Troponin T (0-10) ABS# NT-Pro-B Natriuret Pep (0-125) pg/mL Total Protein 6.2 L (6.6-8.7) g/dL Albumin 4.0 (3.5-5.2) g/dL Globulin 2.2 (1.3-4.6) g/dL 10/01/20 10/01/20 10/02/20 Range/Units 22:37 22:37 00:28 WBC (4.0-10.0) 10^3/ uL RBC (4.1-5.3) 10^6/u L Hgb (11.7-16.6) g/dL Hct (42.0-52.0) % MCV (80-94) fL MCH (28.0-34.0) pg MCHC (30.0-36.0) g/dL RDW (12.1-15.1) % Plt Count (130-400) 10^3/c mm MPV (7.4-10.4) fL Neut % (Auto) % Lymph % (Auto) % [place] % (Auto) % Eos % (Auto) % Baso % (Auto) % Neut # (Auto) (1.8-7.7) 10^3/u L Lymph # (Auto) (0.8-4.8) 10^3/u L [place] # (Auto) (0.2-0.9) 10^3/u L Eos # (Auto) (0.0-0.8) 10^3/u L Baso # (Auto) (0.0-0.1) 10^3/u L Nucleated RBC % (a uto) % Nucleated RBCs # /100WBC D-Dimer (0-0.59) ug/mIFE U Sodium (136-145) mmol/L Potassium (3.5-5.1) mmol/L Chloride (98-107) mmol/L Carbon Dioxide (22-29) mmol/L Anion Gap (5-19) BUN (6-20) mg/dL Creatinine (0.7-1.2) mg/dL GFR Calculation (90-130) mL/min Glucose (65-115) mg/dL Calculated Osmolal ity (285-295) mOsm/k g Calcium (8.5-10.5) mg/dL Total Bilirubin (0.15-1.2) mg/dL AST (0-40) U/L ALT (0-41) U/L Alkaline Phosphata se (40-130) IU/L Troponin T Baselin e 6 (0-15) ng/L Troponin T 120 Min [place] 6.00 (0-15) ng/L Delta Troponin T 0 (0-10) ABS# NT-Pro-B Natriuret Pep 45 (0-125) pg/mL Total Protein (6.6-8.7) g/dL Albumin (3.5-5.2) g/dL Globulin (1.3-4.6) g/dL Imaging Data^: CT Chest: Radiologist's impression: [place] [address] CT Scan Report Signed Patient: Celestine Funez Unit #: [id number] : 1980 Age/Sex: 40 / M ADM Date: 10/01/20 Loc: ER Room/Bed: Attending Dr: Ordering Provider/Ordering MD: Kizzy Gorman Date of Service: 10/01/20 Procedure(s): CT angio chest PE protcl [id number] Accession Number(s): [id number] Report Number: [id number] PROCEDURE INFORMATION: Exam: CT Angiography Chest With Contrast Exam date and time: 10/01/2020 11:01 PM Age: 40 years old Clinical indication: Left-sided chest pain; Patient HX: C/O L sided cp; Additional info: Left chest swelling, left side cp TECHNIQUE: Imaging protocol: Computed tomographic angiography of the chest with contrast. 3D rendering (Not supervised by radiologist): MIP and/or 3D reconstructed images were created by the technologist. Radiation optimization: All CT scans at this facility use at least one of these dose optimization techniques: automated exposure control; mA and/or kV adjustment per patient size (includes targeted exams where dose is matched to clinical indication); or iterative reconstruction. Contrast material: OMNI 350; Contrast volume: 78 ml; Contrast route: INTRAVENOUS (IV); COMPARISON: CR (CHEST, ) 10/01/2020 10:44 PM RADIATION DOSE METRICS: Total DLP (mGy-cm): 548.98 FINDINGS: Pulmonary arteries: There is no evidence of filling defects within the pulmonary arterial circulation to suggest pulmonary embolism. Aorta: The aorta is normal. Lungs: There is a calcified granuloma in the left lower lobe. There is calcified granuloma in the right upper lobe. Pleural spaces: Unremarkable. No pneumothorax. No pleural effusion. Heart: Unremarkable. No cardiomegaly. No pericardial effusion. Mediastinal space: There is mild thickening of the distal esophagus which could represent esophagitis. Lymph nodes: There are calcified hilar and mediastinal lymph nodes in keeping with old granulomatous disease. Spleen: The spleen demonstrates punctate calcifications, consistent with remote granulomatous organism exposure. Bones/joints: Unremarkable. No acute fracture. Soft tissues: Unremarkable. CT/CT angio chest PE protcl [id number] IMPRESSION: 1. No evidence of pulmonary embolism. 2. Old granulomatous disease. 3. Esophageal thickening. Please correlate for symptoms of esophagitis. Radiation Dose CTDIVOL = (mGy): DLP = 548.98 (mGy-cm) Dictated By: Wilton Ballard Signed By: Wilton Ballard Signed Date/Time: 10/01/202352 DD/ 51 EKG Data^: EKG 1: EKG interpretation date: 10/01/20 EKG interpretation time: 22:35 Other EKG comments: Sinus bradycardia; borderline ECG Discharge Plan Discharge Patient Disposition: Home Clinical Impression: Esophagitis, Granulomatosis Chest pain Qualifiers: Chest pain type: unspecified Qualified Code(s): R07.9 - Chest pain, unspecified Condition: Stable Prescriptions: No Action pantoprazole [Protonix] 40 mg tablet,delayed release (DR/EC) 40 mg PO DAILY 30 Days Qty: 30 RF: 0 sucralfate [Carafate] 1 gram tablet 1 g PO BID 30 Days Qty: 60 RF: 0 nitroglycerin 0.4 mg tablet, sublingual 0.4 mg sublingual Q5M PRN (Reason: chest pain) 30 Days Qty: 30 RF: 0 cholecalciferol (vitamin D3) 125 mcg (5,000 unit) capsule 125 mcg PO DAILY Qty: 30 RF: 2 calcium carbonate-vitamin D3 [Os-Chip 500 + D3] 500mg (1,250mg) -600 unit tablet 1 tab PO .2 times day Qty: 60 RF: 2 Aspir-81 81 mg Tablet,Delayed Release (Dr/Ec) 81 mg PO DAILY@05 RF: 0 lisinopril 10 mg tablet 10 mg PO DAILY@05 RF: 0 Discharge Orders: Discharge ED (Routine); Ordered 10/02/20 Ordered By: Kizzy Gorman Referrals: Rhona Armstrong FNP-C [Primary Care Provider] - Discharge Diet: Usual diet Discharge Activity: Resume usual activity Patient Instructions: Chest Pain (ED), Diet for Ulcers and Gastritis (ED), Diaz Esophagus (ED) Activity Restrictions/Additional Instructions: Continue Protonix and Carafate as directed, do not skip doses, take Protonix on empty stomach 1 hour prior to meal. Pulmonology will be consulted due to abnormal CT scan findings of old granulomatous disease of the lung and spleen Dr. Campoverde will be consulted due to esophagitis findings on CT scan of the chest. dining services manager will be contacting you with appointments for these consults. Avoid greasy fried fatty foods, sit upright for 2 to 3 hours prior to lying down. Return to the emergency department if you develop worsening symptoms Coding Level of Care Code ED Forest Pathologist for Ben Fwdejan Exam Comprehensive
[2020-10-01 22:58] LABS: Basophils # 0.1 10^3/uL (0.0-0.1); Basophils % 0.5 %; Eosinophils # 0.4 10^3/uL (0.0-0.8); Eosinophils % 3.2 %; Hematocrit 43.4 % (42.0-52.0); Hemoglobin 14.2 g/dL (11.7-16.6); Lymphocytes # 3.9 10^3/uL (0.8-4.8); Lymphocytes % 30.5 %; Mean Corpuscular HGB Conc 32.7 g/dL (30.0-36.0); Mean Corpuscular Volume 88.6 fL (80-94); Mean Platelet Volume 10.3 fL (7.4-10.4); Monocytes # 1.1 10^3/uL (0.2-0.9); Monocytes % 8.8 %; Neutrophils # 7.17 10^3/uL (1.8-7.7); Neutrophils % 56.6 %; Nucleated Red Blood Cells % 0 %; Platelet Count 336 10^3/cmm (130-400); Red Cell Distribution Width 12.9 % (12.1-15.1); White Blood Count 12.7 10^3/uL (4.0-10.0)
--- NOTE | 2020-10-01 22:58 | CTR_ITS ---
PROCEDURE INFORMATION: Exam: CT Angiography Chest With Contrast Exam date and time: 10/01/2020 11:01 PM Age: 40 years old Clinical indication: Left-sided chest pain; Patient HX: C/O L sided cp; Additional info: Left chest swelling, left side cp TECHNIQUE: Imaging protocol: Computed tomographic angiography of the chest with contrast. 3D rendering (Not supervised by radiologist): MIP and/or 3D reconstructed images were created by the technologist. Radiation optimization: All CT scans at this facility use at least one of these dose optimization techniques: automated exposure control; mA and/or kV adjustment per patient size (includes targeted exams where dose is matched to clinical indication); or iterative reconstruction. Contrast material: OMNI 350; Contrast volume: 78 ml; Contrast route: INTRAVENOUS (IV); COMPARISON: CR (CHEST, ) 10/01/2020 10:44 PM RADIATION DOSE METRICS: Total DLP (mGy-cm): 548.98 FINDINGS: Pulmonary arteries: There is no evidence of filling defects within the pulmonary arterial circulation to suggest pulmonary embolism. Aorta: The aorta is normal. Lungs: There is a calcified granuloma in the left lower lobe. There is calcified granuloma in the right upper lobe. Pleural spaces: Unremarkable. No pneumothorax. No pleural effusion. Heart: Unremarkable. No cardiomegaly. No pericardial effusion. Mediastinal space: There is mild thickening of the distal esophagus which could represent esophagitis. Lymph nodes: There are calcified hilar and mediastinal lymph nodes in keeping with old granulomatous disease. Spleen: The spleen demonstrates punctate calcifications, consistent with remote granulomatous organism exposure. Bones/joints: Unremarkable. No acute fracture. Soft tissues: Unremarkable. CT/CT angio chest PE protcl [id number] IMPRESSION: 1. No evidence of pulmonary embolism. 2. Old granulomatous disease. 3. Esophageal thickening. Please correlate for symptoms of esophagitis. Radiation Dose CTDIVOL = (mGy): DLP = 548.98 (mGy-cm)
[2020-10-01] MEDS: acetaminophen 500 mg Tablet 1000 MG PO (23:05)
[2020-10-01 23:16] LABS: Alanine Aminotransferase 22 U/L (0-41); Alkaline Phosphatase 113 IU/L (40-130); Anion Gap 12.9 (5-19); Aspartate Amino Transferase 15 U/L (0-40); Blood Urea Nitrogen 11 mg/dL (6-20); Calcium 9.1 mg/dL (8.5-10.5); Carbon Dioxide 25 mmol/L (22-29); Chloride 105 mmol/L (98-107); Globulin 2.2 g/dL (1.3-4.6); Glomerular Filtration Rate 125.5 mL/min (90-130); Glucose 98 mg/dL (65-115); Osmolality Calculated 287 mOsm/kg (285-295); Potassium 3.9 mmol/L (3.5-5.1); Sodium 139 mmol/L (136-145); Total Bilirubin 0.2 mg/dL (0.15-1.2); Total Protein 6.2 g/dL (6.6-8.7)
[2020-10-01 23:19] LABS: Troponin(5th) Baseline 6 ng/L (0-15)
[2020-10-01 23:20] LABS: D Dimer <= 0.27 ug/mIFEU (0-0.59)
[2020-10-01] MEDS: iohexol 350 mg/mL 100 mL Btl IV (23:25)
[2020-10-01 23:28] VITALS: BP 129/82; PULSE 57; RESP 16; O2SAT 97
[2020-10-01 23:40] LABS: NT Pro B Type Natriuretic Pept 45 pg/mL (0-125)
[2020-10-01 23:50] VITALS: BP 121/75; PULSE 54; RESP 16; O2SAT 96
[2020-10-02 00:05] VITALS: BP 143/86; PULSE 68; RESP 16; O2SAT 94
[2020-10-02] MEDS: ketorolac 30 mg/mL INJ IVP (00:29)
[2020-10-02 00:30] VITALS: BP 127/82; PULSE 55; RESP 16
[2020-10-02 00:40] VITALS: BP 127/82; PULSE 56; RESP 16; O2SAT 97
[2020-10-02 00:57] LABS: Troponin 5 2HR Delta 0 ABS# (0-10)
[2020-10-03 12:44] LABS: Angiotensin Converting Enzyme 27 U/L (9-67)
--- NOTE | 2020-10-04 08:02 | DCPLANNER ---
late entry - egg caser had message to schedule an outpatient PFT for patient. call center operations manager faxed order and patients information to centralized scheduling, will call for appointment information. call center operations manager also had message to refer patient to [facility] general surgery for an outpatient EGD. call center operations manager emailed patients information to both Svitlana and Tania at [facility] General Surgery. Patients information will be printed and reviewed. Clinic will call patient with appointment information. call center operations manager also had message to schedule a follow up appointment for patient with pulmonology. call center operations manager will call [facility] on 10.04.20 to schedule that follow up appointment.
--- NOTE | 2020-10-04 13:34 | DCPLANNER ---
social media sr strategy manager received message to schedule appt with pulmonology. social media sr strategy manager called and scheduled appt. Appt is 10/10/20 @ 0845. social media sr strategy manager called patient and gave him appt details.
--- NOTE | 2020-10-05 09:28 | DCPLANNER ---
Patient has a follow up appointment scheduled for Saturday, October 10, [address] at 9:[address] Campoverde. Clinic will call patient with appointment information.
--- NOTE | 2020-10-07 12:31 | DCPLANNER ---
Patient had a PFT ordered and scheduled - was cancelled due to patient not wanting to get a COVID test.
--- NOTE | 2020-11-10 15:31 | DCPLANNER ---
Patient had a follow up appointment scheduled with general surgery - patient did attend appointment. Patient had a follow up appointment scheduled with pulmonology - patient did attend appointment.
== END 2020-10-02 00:38 | disposition home or self-care (01) ==
PROVIDERS: Emergency Provider Nurse Practitioner Family; PCP Nurse Practitioner Family
DX: K20.90 Esophagitis, unspecified without bleeding (principal); L92.9 Granulomatous disorder of the skin and subcutaneous tissue, unspecified; R07.9 Chest pain, unspecified; Z79.82 Long term (current) use of aspirin; I10 Essential (primary) hypertension; F17.210 Nicotine dependence, cigarettes, uncomplicated
CPT/HCPCS: 12345; 71045; 71275; 80053; 82164; 83880; 84484; 85025; 85378; 93005; 96374; 99283; 99284; J1885; Q9967

== ENCOUNTER 2020-10-31 08:01 | Outpatient (CLI) | payer BC, MEDICAID, SELFPAY ==
--- NOTE | 2020-10-31 08:29 | FL_ITS ---
WS: [id number] DOUBLE CONTRAST UPPER GI EXAMINATION HISTORY: K21.9 - Gastro-esophageal reflux disease without esophagitis COMPARISON: None available. FLUOROSCOPY TIME: 2.8 minutes. Barium mixture traversed normally throughout the esophagus. No filling defects within the stomach. Du odenal bulb was normally distensible and pliable. No gastroesophageal reflux No hiatal hernia was demonstrated on this exam. FL/FL upper GI w air* [id number] IMPRESSION: Normal upper GI examination.
== END 2020-10-31 08:02 | disposition home or self-care (01) ==
LOC: RADWPI 08:04
PROVIDERS: PCP Nurse Practitioner Family; Visit Provider Surgery
DX: K21.9 Gastro-esophageal reflux disease without esophagitis (principal)
CPT/HCPCS: 74246

== ENCOUNTER 2020-10-31 09:23 | Outpatient (CLI) | payer BC, MEDICAID, SELFPAY ==
[2020-10-31 09:35] VITALS: BMI 31.9
--- NOTE | 2020-10-31 09:36 | ECG_ITS ---
[facility] Test Date: 2020-10-31 Pat Name: Celestine Funez Department: Room: Gender: Male Residential Advisor: Aparna Salazar : 1980 Requested By: Michael Munoz Order Number: [id number] Shira MD: Michael Munoz M.D. Interpretive Statements NAME OF STUDY: TREADMILL STRESS TEST INDICATION: [Chest Pain] EXERCISE DATA: The patient was exercised by Macho protocol. Baseline heart rate was 91 beats per minute. Baseline blood pressure was 119/75 millimeters of mercury. Maximum predicted heart rate was 181 beats per minute. Maximum heart rate achieved was 161, which was 88% of the target heart rate. Maximum blood pressure was 163/70 millimeters of mercury. Total exercise time was 8 minutes and 54 seconds. Maximum METs achieved was 10.2, maximum VO2 was 35.7. The reason for ending the test was completion of the protocol. The patient did not complain of symptoms during the stress test. ELECTROCARDIOGRAM: BASELINE: Showed sinus rhythm, normal axis, early repolarization findings.. [] EXERCISE: At the peak exercise level, [] No significant ST-T changes suggestive of ischemia noted. [] RECOVERY: During the recovery period, heart rate dropped appropriately. No significant ST-T changes in the recovery suggestive of ischemia noted. [] CONCLUSION: 1. Exercise capacity good. 2. Heart rate response was appropriate 3. Blood pressure response was appropriate 4. Symptoms not suggestive of ischemia. 5. Electrocardiogram was not suggestive of ischemia. Electronically Signed On 11-06-2020 18:21:10 CDT by Michael Munoz M.D. [email or web address]
[2020-10-31 10:17] VITALS: BP 142/64; PULSE 86
== END 2020-10-31 09:24 | disposition home or self-care (01) ==
LOC: CDL 09:25
PROVIDERS: PCP Nurse Practitioner Family; Visit Provider Internal Medicine
DX: R07.9 Chest pain, unspecified (principal)
CPT/HCPCS: 93017

== ENCOUNTER 2020-11-22 20:41 | Emergency (ER) | payer BC, MEDICAID, SELFPAY ==
[2020-11-22 20:53] VITALS: BP 155/89; PULSE 73; RESP 16; TEMP 36.6; O2SAT 97; BMI 32.8
--- NOTE | 2020-11-22 21:08 | XR_ITS ---
WS: [id number] PORTABLE CHEST HISTORY: CP COMPARISON: 10/01/2020 Lungs are clear and well expanded. No pleural effusion or pneumothorax. Cardiac size: Normal. Mediastinum/Aorta: Normal mediastinum. No osseous abnormality seen. XR/XR chest 1V portable [id number] IMPRESSION: Unremarkable portable chest.
--- NOTE | 2020-11-22 21:08 | ECG_ITS ---
[facility] Test Date: 2020-11-22 Pat Name: Celestine Funez Department: Room: Gender: Male Hr Internship: : 1980 Requested By: Eagle Quintanilla I Order Number: [id number] Shira MD: Sameer Simon M.D. Measurements Intervals [place] Rate: 54 P: 53 PA: 154 QRS: 60 QRSD: 102 T: 54 QT: 423 QTc: 401 Interpretive Statements SINUS BRADYCARDIA WITH SINUS ARRHYTHMIA ST ELEVATION, PROBABLY EARLY REPOLARIZATION [ST ELEVATION WITH NORMALLY INFLECTED T WAVE] Compared to ECG 10/01/2020 22:32:27 ST (T wave) deviation now present Early repolarization now present Electronically Signed On 11-23-2020 19:47:07 CDT by Sameer Simon M.D. [id number]
[2020-11-22 21:24] LABS: Basophils # 0.1 10^3/uL (0.0-0.1); Basophils % 0.6 %; Eosinophils # 0.3 10^3/uL (0.0-0.8); Eosinophils % 2.8 %; Hematocrit 44.7 % (42.0-52.0); Hemoglobin 14.9 g/dL (11.7-16.6); Lymphocytes # 3.8 10^3/uL (0.8-4.8); Lymphocytes % 31.4 %; Mean Corpuscular HGB Conc 33.3 g/dL (30.0-36.0); Mean Corpuscular Hemoglobin 29.6 pg (28.0-34.0); Mean Corpuscular Volume 88.7 fL (80-94); Mean Platelet Volume 9.9 fL (7.4-10.4); Monocytes # 1.1 10^3/uL (0.2-0.9); Monocytes % 8.8 %; Neutrophils % 56.1 %; Nucleated Red Blood Cells % 0 %; Platelet Count 354 10^3/cmm (130-400); Red Blood Count 5.04 10^6/uL (4.1-5.3); Red Cell Distribution Width 13.3 % (12.1-15.1); White Blood Count 12.1 10^3/uL (4.0-10.0)
[2020-11-22 21:48] LABS: Troponin(5th) Baseline 6 ng/L (0-15)
[2020-11-22 21:55] LABS: Alanine Aminotransferase 33 U/L (0-41); Albumin Level 4.4 g/dL (3.5-5.2); Alkaline Phosphatase 115 IU/L (40-130); Aspartate Amino Transferase 17 U/L (0-40); Blood Urea Nitrogen 12 mg/dL (6-20); Calcium 9.2 mg/dL (8.5-10.5); Carbon Dioxide 25 mmol/L (22-29); Chloride 104 mmol/L (98-107); Creatine Phosphokinase 82 U/L (39-308); Globulin 2.4 g/dL (1.3-4.6); Glomerular Filtration Rate 125.5 mL/min (90-130); Glucose 113 mg/dL (65-115); Lipase 23 U/L (13-60); NT Pro B Type Natriuretic Pept 32 pg/mL (0-125); Osmolality Calculated 287 mOsm/kg (285-295); Sodium 138 mmol/L (136-145); Total Bilirubin 0.2 mg/dL (0.15-1.2); Total Protein 6.8 g/dL (6.6-8.7)
[2020-11-22 21:58] LABS: Anion Gap 13.1 (5-19); Potassium 4.1 mmol/L (3.5-5.1)
--- NOTE | 2020-11-22 22:32 | CTR_ITS ---
PROCEDURE INFORMATION: Exam: CT Chest With Contrast; Diagnostic Exam date and time: 11/22/2020 10:34 PM Age: 40 years old Clinical indication: Abdominal pain; Left-sided chest pain; Additional info: Chest pain, abdominal pain TECHNIQUE: Imaging protocol: Diagnostic computed tomography of the chest with contrast. Radiation optimization: All CT scans at this facility use at least one of these dose optimization techniques: automated exposure control; mA and/or kV adjustment per patient size (includes targeted exams where dose is matched to clinical indication); or iterative reconstruction. Contrast material: OMNI 300; Contrast volume: 95 ml; Contrast route: INTRAVENOUS (IV); COMPARISON: CT angio chest PE protcl [id number] 10/01/2020 11:14 PM RADIATION DOSE METRICS: Total DLP (mGy-cm): 1633.59 FINDINGS: Lungs: A calcified granuloma is seen in the right upper lobe. Mild dependent atelectasis is also observed in both lungs. No acute airspace process is seen. Pleural spaces: Unremarkable. No pneumothorax. No pleural effusion. Heart: The heart is normal in size. Mediastinal space: Mild wall thickening in the distal esophagus is appreciated. Aorta: Unremarkable. No aortic aneurysm. Lymph nodes: Unremarkable. No enlarged lymph nodes. Bones/joints: Unremarkable. No acute fracture. Soft tissues: Unremarkable. IMPRESSION: 1. No acute pulmonary abnormality. 2. Possible mild distal esophagitis, correlate clinically. PROCEDURE INFORMATION: Exam: CT Abdomen And Pelvis With Contrast Exam date and time: 11/22/2020 10:34 PM Age: 40 years old Clinical indication: Abdominal pain; Left-sided chest pain; Additional info: Chest pain, abdominal pain TECHNIQUE: Imaging protocol: Computed tomography of the abdomen and pelvis with contrast. Radiation optimization: All CT scans at this facility use at least one of these dose optimization techniques: automated exposure control; mA and/or kV adjustment per patient size (includes targeted exams where dose is matched to clinical indication); or iterative reconstruction. Contrast material: OMNI 300; Contrast volume: 95 ml; Contrast route: INTRAVENOUS (IV); COMPARISON: CT angio chest PE protcl [id number] 10/01/2020 11:14 PM RADIATION DOSE METRICS: Total DLP (mGy-cm): 1633.59 FINDINGS: Liver: Normal. No mass. Gallbladder and bile ducts: The gallbladder is contracted and appears normal. No radiopaque gallstone is seen. No biliary ductal dilatation. Pancreas: Normal. No ductal dilation. Spleen: Normal. No splenomegaly. Adrenal glands: Normal. No mass. Kidneys and ureters: Normal. No hydronephrosis. Stomach and bowel: Unremarkable. No obstruction. No mucosal thickening. Appendix: The appendix is normal. Intraperitoneal space: Unremarkable. No free air. No significant fluid collection. Vasculature: Unremarkable. No abdominal aortic aneurysm. Lymph nodes: Unremarkable. No enlarged lymph nodes. Urinary bladder: Unremarkable as visualized. Reproductive: Unremarkable as visualized. Bones/joints: Unremarkable. No acute fracture. Soft tissues: Unremarkable. CT/CT chest abd pel w con* IMPRESSION: No acute abnormality is seen in the abdomen or pelvis. Radiation Dose CTDIVOL = (mGy): DLP = 1633.59~1633.59 (mGy-cm)
[2020-11-22] MEDS: iohexol 300 mg/mL 100 mL Btl IV (22:45)
--- NOTE | 2020-11-22 23:56 | ED_ITS ---
HPI - Chest Pain General: Chief Complaint: Chest Pain Stated Complaint: CP Time Seen by Provider: 11/22/20 20:55 Source: patient and family () Mode of arrival: EMS Limitations: no limitations History of Present Illness: MD complaint: chest pain Onset (ago): day(s) (2) Timing of current episode: episodic Prior episodes: Yes Onset: during rest Pain location: left chest Pain radiation: other (axilla) Severity: moderate Quality: sharp Relieving factors: nothing Exacerbating factors: nothing Associated symptoms: Deny abdominal pain, diaphoresis, dyspnea, fever(s), leg edema, nausea, palpitations, sense of impending doom, syncope or vomiting Treatment prior to arrival: aspirin and nitroglycerin Review of Systems General: Reports: 10 or more systems reviewed and unremarkable except in HPI and below Const: Denies: fever(s) or diaphoresis Card: Denies: palpitations or syncope Resp: Denies: dyspnea GI: Denies: abdominal pain, nausea or vomiting PFSH ED PFSH: Medical History Essential hypertension Gastroesophageal reflux disease Surgical History No history of previous surgery Family History Other Chronic kidney disease (CKD) Diabetes Hypertension Social History Smoking and tobacco status: former smoker Quit status (tobacco): has quit using tobacco Year quit tobacco: 2020PD x 24 Years Second hand smoke exposure: Yes Smoking risk assessment/counseling performed?: No Alcohol intake: current Alcohol intake frequency: holidays/special occasions on ly Counseling given: No Counseling given: No Lives independently: Yes Household members: spouse Housing: Manufactured/Mobile home Marital status: Highest education level completed: High School Graduate Current occupational status: employed 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 History of recent travel: No Current gender identity: Male Physical Exam Const: COMMON NORMALS: no acute distress, average body habitus, patient oriented x3, no limitations, healthy appearing, alert and well nourished Eye: COMMON NORMALS: Equal, round and reactive pupils present, EOMs intact bilaterally, conjunctivae normal and no scleral icterus CONJUNCTIVA: Yes conjunctivae normal PUPIL: Yes Equal, round and reactive pupils present Neck/C-Spine: COMMON NORMALS: no meningeal signs and no JVD Chest: COMMONS NORMALS: normal inspection of the chest CHEST: Yes tenderness Resp: COMMON NORMALS: normal respiratory effort, No retractions, No use of accessory muscles, clear to auscultation bilaterally and percussion normal AUSCULTATION: clear to auscultation bilaterally PERCUSSION: percussion normal Cardio: COMMON NORMALS: no JVD, regular rate, regular rhythm, S1 normal heart sound present, S2 normal heart sound present, No gallops present (Cardio), No clicks present (Cardio), No murmurs present (Cardio), No rub (Cardio) and Peripheral pulses 2+ throughout RATE: regular rate RHYTHM: regular rhythm HEART SOUNDS: S1 normal heart sound present and S2 normal heart sound present PERIPHERAL PULSES: Peripheral pulses 2+ throughout GI: COMMON NORMALS: Normal to inspection, nondistended, normoactive bowel sounds present, Soft to palpation, non-tender, No hepatosplenomegaly present, no masses and no bruits PALPATION: Yes Soft to palpation and Yes No hepatosplenomegaly present Extremity: COMMON NORMALS: normal to inspection, full ROM, capillary refill normal, no calf tenderness and no pedal edema Neuro: COMMON NORMALS: patient oriented x3 SENSORIUM/ORIENTATION: Yes alert MENINGEAL SIGNS: Yes no meningeal signs Skin: COMMON NORMALS: no rashes or lesions noted, no wounds, turgor normal, no jaundice, no petechiae and no mottling GENERAL SKIN EXAM: no rashes or lesions noted and turgor normal Course Reevaluation(s): Reevaluation #1: Discussed his labs and imaging findings with him, negative for acute findings. Will discharge him home with no new orders. Will manage him as a case of costochondritis with ibuprofen. He voiced understanding and all questions answered. Time: 23:57 Vital Signs: Vital signs: Vital Signs Temperature 97.8 F 11/22/20 20:53 Pulse Rate 74 11/23/20 00:21 Respiratory Rate 18 11/23/20 00:21 Blood Pressure 138/79 11/23/20 00:21 Pulse Oximetry 96 11/23/20 00:21 MDM - Chest Pain MDM Narrative: Medical decision making narrative: 40 year old male with no cardiac risk factors who presents to the ED with complaints of chest pain. Evaluation in the ED with unremarkable for a cardiac cause of the chest pain. He is being treated as a case of costochondritis. Medical Records: Attestation: I reviewed the patient's medical records. Lab Data: Attestation: I reviewed the patient's lab results. Labs: Lab Results 11/22/20 11/22/20 11/22/20 Range/Units 21:10 21:10 21:10 WBC 12.1 H (4.0-10.0) 10^3/ uL RBC 5.04 (4.1-5.3) 10^6/u L Hgb 14.9 (11.7-16.6) g/dL Hct 44.7 (42.0-52.0) % MCV 88.7 (80-94) fL MCH 29.6 (28.0-34.0) pg MCHC 33.3 (30.0-36.0) g/dL RDW 13.3 (12.1-15.1) % Plt Count 354 (130-400) 10^3/c mm MPV 9.9 (7.4-10.4) fL Neut % (Auto) 56.1 % Lymph % (Auto) 31.4 % Ward % (Auto) 8.8 % Eos % (Auto) 2.8 % Baso % (Auto) 0.6 % Neut # (Auto) 6.80 (1.8-7.7) 10^3/u L Lymph # (Auto) 3.8 (0.8-4.8) 10^3/u L Ward # (Auto) 1.1 H (0.2-0.9) 10^3/u L Eos # (Auto) 0.3 (0.0-0.8) 10^3/u L Baso # (Auto) 0.1 (0.0-0.1) 10^3/u L Nucleated RBC % (a uto) 0 % Nucleated RBCs # 0.0 /100WBC Sodium 138 (136-145) mmol/L Potassium 4.1 (3.5-5.1) mmol/L Chloride 104 (98-107) mmol/L Carbon Dioxide 25 (22-29) mmol/L Anion Gap 13.1 (5-19) BUN 12 (6-20) mg/dL Creatinine 0.7 (0.7-1.2) mg/dL GFR Calculation 125.5 (90-130) mL/min Glucose 113 (65-115) mg/dL Calculated Osmolal ity 287 (285-295) mOsm/k g Calcium 9.2 (8.5-10.5) mg/dL Total Bilirubin 0.2 (0.15-1.2) mg/dL AST 17 (0-40) U/L ALT 33 (0-41) U/L Alkaline Phosphata se 115 (40-130) IU/L Creatine Kinase 82 (39-308) U/L Troponin T Baselin e 6 (0-15) ng/L Troponin T 120 Min [place] (0-15) ng/L Delta Troponin T (0-10) ABS# NT-Pro-B Natriuret Pep 32 (0-125) pg/mL Total Protein 6.8 (6.6-8.7) g/dL Albumin 4.4 (3.5-5.2) g/dL Globulin 2.4 (1.3-4.6) g/dL Lipase 23 (13-60) U/L 11/22/ Range/Units 23:30 WBC (4.0-10.0) 10^3/ uL RBC (4.1-5.3) 10^6/u L Hgb (11.7-16.6) g/dL Hct (42.0-52.0) % MCV (80-94) fL MCH (28.0-34.0) pg MCHC (30.0-36.0) g/dL RDW (12.1-15.1) % Plt Count (130-400) 10^3/c mm MPV (7.4-10.4) fL Neut % (Auto) % Lymph % (Auto) % Ward % (Auto) % Eos % (Auto) % Baso % (Auto) % Neut # (Auto) (1.8-7.7) 10^3/u L Lymph # (Auto) (0.8-4.8) 10^3/u L Ward # (Auto) (0.2-0.9) 10^3/u L Eos # (Auto) (0.0-0.8) 10^3/u L Baso # (Auto) (0.0-0.1) 10^3/u L Nucleated RBC % (a uto) % Nucleated RBCs # /100WBC Sodium (136-145) mmol/L Potassium (3.5-5.1) mmol/L Chloride (98-107) mmol/L Carbon Dioxide (22-29) mmol/L Anion Gap (5-19) BUN (6-20) mg/dL Creatinine (0.7-1.2) mg/dL GFR Calculation (90-130) mL/min Glucose (65-115) mg/dL Calculated Osmolal ity (285-295) mOsm/k g Calcium (8.5-10.5) mg/dL Total Bilirubin (0.15-1.2) mg/dL AST (0-40) U/L ALT (0-41) U/L Alkaline Phosphata se (40-130) IU/L Creatine Kinase (39-308) U/L Troponin T Baselin e (0-15) ng/L Troponin T 120 Min [place] 6.00 (0-15) ng/L Delta Troponin T 0 (0-10) ABS# NT-Pro-B Natriuret Pep (0-125) pg/mL Total Protein (6.6-8.7) g/dL Albumin (3.5-5.2) g/dL Globulin (1.3-4.6) g/dL Lipase (13-60) U/L Imaging Data^: CXR: Attestation: I personally reviewed and interpreted this imaging study as follows: Radiologist's impression: [address] [address] XRay Report Signed Patient: Celestine Funez #: [id number] : 1980Acct#:[id number] Age/Sex: 40 / MADM Date: 11/22/20 Loc: ERRoom/Bed: Attending Dr: Ordering Provider/Ordering MD: Eagle Quintanilla MD, [facility] Date of Service: 11/22/20 Procedure(s): XR chest 1V portable [id number] Accession Number(s): [id number] Report Number: [id number] WS: [id number] PORTABLE CHEST HISTORY: CP COMPARISON: 10/01/2020 Lungs are clear and well expanded. No pleural effusion or pneumothorax. Cardiac size: Normal. Mediastinum/Aorta: Normal mediastinum. No osseous abnormality seen. XR/XR chest 1V portable [id number] IMPRESSION: Unremarkable portable chest. Dictated By:Margie Grant DO Signed By:Margie Grant DOSigned Date/Time:11/23/20812 DD/ 2 CT Abd/Pel: Attestation: I personally reviewed and interpreted this imaging study as follows: Radiologist's impression: [facility] [address] [address] Scan Report Signed Patient: Celestine Funez #: [id number] : 1980Acct#:[id number] Age/Sex: 40 / MADM Date: 11/22/20 Loc: ERRoom/Bed: Attending Dr: Ordering Provider/Ordering MD: Eagle Quintanilla MD, [facility] Date of Service: 11/22/20 Procedure(s): CT chest abd pel w con* Accession Number(s): [id number] Report Number: [id number] PROCEDURE INFORMATION: Exam: CT Chest With Contrast; Diagnostic Exam date and time: 11/22/2020 10:34 PM Age: 40 years old Clinical indication: Abdominal pain; Left-sided chest pain; Additional info: Chest pain, abdominal pain TECHNIQUE: Imaging protocol: Diagnostic computed tomography of the chest with contrast. Radiation optimization: All CT scans at this facility use at least one of these dose optimization techniques: automated exposure control; mA and/or kV adjustment per patient size (includes targeted exams where dose is matched to clinical indication); or iterative reconstruction. Contrast material: OMNI 300; Contrast volume: 95 ml; Contrast route: INTRAVENOUS (IV); COMPARISON: CT angio chest PE protcl [id number] 10/01/2020 11:14 PM RADIATION DOSE METRICS: Total DLP (mGy-cm): 1633.59 FINDINGS: Lungs: A calcified granuloma is seen in the right upper lobe. Mild dependent atelectasis is also observed in both lungs. No acute airspace process is seen. Pleural spaces: Unremarkable. No pneumothorax. No pleural effusion. Heart: The heart is normal in size. Mediastinal space: Mild wall thickening in the distal esophagus is appreciated. Aorta: Unremarkable. No aortic aneurysm. Lymph nodes: Unremarkable. No enlarged lymph nodes. Bones/joints: Unremarkable. No acute fracture. Soft tissues: Unremarkable. IMPRESSION: 1. No acute pulmonary abnormality. 2. Possible mild distal esophagitis, correlate clinically. PROCEDURE INFORMATION: Exam: CT Abdomen And Pelvis With Contrast Exam date and time: 11/22/2020 10:34 PM Age: 40 years old Clinical indication: Abdominal pain; Left-sided chest pain; Additional info: Chest pain, abdominal pain TECHNIQUE: Imaging protocol: Computed tomography of the abdomen and pelvis with contrast. Radiation optimization: All CT scans at this facility use at least one of these dose optimization techniques: automated exposure control; mA and/or kV adjustment per patient size (includes targeted exams where dose is matched to clinical indication); or iterative reconstruction. Contrast material: OMNI 300; Contrast volume: 95 ml; Contrast route: INTRAVENOUS (IV); COMPARISON: CT angio chest PE protcl [id number] 10/01/2020 11:14 PM RADIATION DOSE METRICS: Total DLP (mGy-cm): 1633.59 FINDINGS: Liver: Normal. No mass. Gallbladder and bile ducts: The gallbladder is contracted and appears normal. No radiopaque gallstone is seen. No biliary ductal dilatation. Pancreas: Normal. No ductal dilation. Spleen: Normal. No splenomegaly. Adrenal glands: Normal. No mass. Kidneys and ureters: Normal. No hydronephrosis. Stomach and bowel: Unremarkable. No obstruction. No mucosal thickening. Appendix: The appendix is normal. Intraperitoneal space: Unremarkable. No free air. No significant fluid collection. Vasculature: Unremarkable. No abdominal aortic aneurysm. Lymph nodes: Unremarkable. No enlarged lymph nodes. Urinary bladder: Unremarkable as visualized. Reproductive: Unremarkable as visualized. Bones/joints: Unremarkable. No acute fracture. Soft tissues: Unremarkable. CT/CT chest abd pel w con* IMPRESSION: No acute abnormality is seen in the abdomen or pelvis. Radiation Dose CTDIVOL = (mGy): DLP = 1633.59~1633.59 (mGy-cm) Dictated By:Cruz Allen MD Signed By:Allen,Cruz MDSigned Date/Time:11/22/202326 DD/ 24 EKG Data^: EKG 1: Attestation: I personally reviewed and interpreted this EKG as follows: EKG interpretation date: 11/22/20 EKG interpretation time: 21:08 Prior EKG tracings: not available for review Interpretation: sinus bradycardia HR 59 bpm normal axis no st changes EKG 2: Attestation: I personally reviewed and interpreted this EKG as follows: EKG interpretation date: 11/22/20 EKG interpretation time: 23:42 Prior EKG tracings: available for review Interpretation: sinus bradycardia HR 54 bpm early repol Discharge Plan Discharge Patient Disposition: Home Clinical Impression: Costalchondritis Condition: Stable Prescriptions: New ibuprofen 800 mg tablet 800 mg PO Q8H PRN (Reason: pain) Qty: 30 RF: 0 Continued nitroglycerin 0.4 mg tablet, sublingual 0.4 mg sublingual Q5M PRN (Reason: chest pain) 30 Days Qty: 30 RF: 0 sucralfate 100 mg/mL suspension 5 ml PO QID Qty: 1000 RF: 0 Tylenol 325 mg Tablet 325 - 650 mg PO QID PRN (Reason: Pain) RF: 0 Protonix 40 mg tablet,delayed release (DR/EC) 40 mg PO BID@0500,1700 RF: 0 cholecalciferol (vitamin D3) 125 mcg (5,000 unit) capsule 125 mcg PO DAILY@0500 RF: 0 aspirin 81 mg tablet,delayed release (DR/EC) 81 mg PO DAILY@0500 RF: 0 No Action citalopram [Celexa] 20 mg tablet 20 mg PO DAILY 30 Days Qty: 30 RF: 0 lisinopril 20 mg tablet 20 mg PO DAILY@05 30 Days Qty: 30 RF: 2 Discharge Orders: Discharge ED (Routine); Ordered 11/23/20 Ordered By: Eagle Quintanilla Referrals: Rhona Armstrong FNP-C [Primary Care Provider] - 1-3 days Discharge Diet: Usual diet Discharge Activity: Increase activity as tolerated Patient Instructions: Costochondritis (ED) Activity Restrictions/Additional Instructions: Return for any new or worsening symptoms. Follow-up with your primary care provider within 3 days. When you see your primary care provider you need to get tested for H. pylori, and if positive he will need to get treated for that. Take the medications that I gave you tonight as prescribed. Ensure that you eat before taking the medications. Coding Level of Care Code ED [facility] for Ben Valdes
[2020-11-23 00:10] LABS: Troponin 5 2HR Delta 0 ABS# (0-10)
[2020-11-23] MEDS: ketorolac 30 mg/mL INJ IVP (00:10)
[2020-11-23 00:21] VITALS: BP 138/79; PULSE 74; RESP 18; O2SAT 96
== END 2020-11-23 00:15 | disposition home or self-care (01) ==
PROVIDERS: Emergency Provider Family Medicine; PCP Nurse Practitioner Family
DX: M94.0 Chondrocostal junction syndrome [Tietze] (principal); Z79.82 Long term (current) use of aspirin; I10 Essential (primary) hypertension; Z87.891 Personal history of nicotine dependence
CPT/HCPCS: 71045; 71260; 74177; 80053; 82550; 83690; 83880; 84484; 85025; 93005; 96374; 99284; J1885; Q9967

== ENCOUNTER 2021-01-12 19:46 | Emergency (ER) | payer BC, MEDICAID, SELFPAY ==
[2021-01-12 19:54] VITALS: BP 128/79; PULSE 79; RESP 18; TEMP 36.6; O2SAT 97; BMI 30.5
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
--- NOTE | 2021-01-12 20:50 | ECG_ITS ---
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 Measurements Intervals [place] Rate: 67 P: 39 CO: 158 QRS: 48 QRSD: 89 T: 46 QT: 381 QTc: 403 Interpretive Statements SINUS RHYTHM Compared to ECG 11/22/2020 23:41:57 Sinus bradycardia no longer present Sinus arrhythmia no longer present ST (T wave) deviation no longer present Early repolarization no longer present Electronically Signed On 01-12-2021 23:54:10 CDT by Sameer Simon M.D. [email or web address]/store/OM/[id number]
--- NOTE | 2021-01-12 20:50 | CTR_ITS ---
PROCEDURE INFORMATION: Exam: CT Head Without Contrast Exam date and time: 01/12/2021 8:57 PM Age: 40 years old Clinical indication: Pain; Dizziness; Headache TECHNIQUE: Imaging protocol: Computed tomography of the head without contrast. Radiation optimization: All CT scans at this facility use at least one of these dose optimization techniques: automated exposure control; mA and/or kV adjustment per patient size (includes targeted exams where dose is matched to clinical indication); or iterative reconstruction. COMPARISON: CT head wo con* [id number] 12/18/2018 9:25 AM RADIATION DOSE METRICS: Total DLP (mGy-cm): 849.17 FINDINGS: Brain: Normal. No hemorrhage. Unremarkable white matter. No mass effect. Cerebral ventricles: No ventriculomegaly. Bones/joints: Unremarkable. No acute fracture. Paranasal sinuses: Visualized sinuses are now clear.. No fluid levels. Mastoid air cells: Visualized mastoid air cells are well aerated. Soft tissues: Unremarkable. CT/CT head wo con* [id number] IMPRESSION: Normal brain Sinus now clear Radiation Dose CTDIVOL = (mGy): DLP = 849.17 (mGy-cm)
[2021-01-12 20:51] VITALS: BP 112/78; PULSE 72; RESP 18; TEMP 36.6; O2SAT 97
[2021-01-12 21:01] LABS: Basophils # 0.1 10^3/uL (0.0-0.1); Basophils % 0.6 %; Eosinophils # 0.2 10^3/uL (0.0-0.8); Hemoglobin 14.6 g/dL (11.7-16.6); Lymphocytes # 3.6 10^3/uL (0.8-4.8); Lymphocytes % 30.2 %; Mean Corpuscular HGB Conc 33.2 g/dL (30.0-36.0); Mean Corpuscular Hemoglobin 29.1 pg (28.0-34.0); Mean Corpuscular Volume 87.6 fL (80-94); Mean Platelet Volume 9.7 fL (7.4-10.4); Monocytes % 8.7 %; Neutrophils # 6.83 10^3/uL (1.8-7.7); Neutrophils % 58.2 %; Nucleated Red Blood Cells % 0 %; Platelet Count 366 10^3/cmm (130-400); Red Blood Count 5.02 10^6/uL (4.1-5.3); Red Cell Distribution Width 13.2 % (12.1-15.1); White Blood Count 11.8 10^3/uL (4.0-10.0)
[2021-01-12 21:19] LABS: Troponin T (5th) Once 6 ng/L (0-15)
[2021-01-12 21:23] LABS: Alanine Aminotransferase 41 U/L (0-41); Albumin Level 4.4 g/dL (3.5-5.2); Alkaline Phosphatase 112 IU/L (40-130); Anion Gap 13.9 (5-19); Aspartate Amino Transferase 18 U/L (0-40); Blood Urea Nitrogen 7 mg/dL (6-20); Calcium 8.4 mg/dL (8.5-10.5); Carbon Dioxide 24 mmol/L (22-29); Chloride 106 mmol/L (98-107); Globulin 2.5 g/dL (1.3-4.6); Glomerular Filtration Rate 125.5 mL/min (90-130); Glucose 88 mg/dL (65-115); Osmolality Calculated 287 mOsm/kg (285-295); Potassium 3.9 mmol/L (3.5-5.1); Sodium 140 mmol/L (136-145); Total Bilirubin 0.3 mg/dL (0.15-1.2); Total Protein 6.9 g/dL (6.6-8.7)
[2021-01-12] MEDS: sodium chloride 0.9% 1,000 ML 999 ML IV (21:32)
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
[2021-01-12 22:00] VITALS: BP 112/78; PULSE 72; RESP 18; TEMP 36.6; O2SAT 97
[2021-01-12 23:36] VITALS: BP 115/82; PULSE 78; RESP 18; TEMP 36.6; O2SAT 97
== END 2021-01-12 23:37 | disposition home or self-care (01) ==
PROVIDERS: Emergency Medicine; Emergency Provider Physician Assistant; PCP Nurse Practitioner Family
DX: R53.1 Weakness (principal); R51.9 Headache, unspecified; Z79.82 Long term (current) use of aspirin; I10 Essential (primary) hypertension; Z87.891 Personal history of nicotine dependence
CPT/HCPCS: 70450; 71045; 80053; 84484; 85025; 93005; 96360; 99284; J7030

== ENCOUNTER → 2022-07-05 08:09 | Outpatient (BNVA) | payer BC, MEDICAID, SELFPAY | PROVIDERS: PCP Nurse Practitioner Family; Visit Provider Nurse Practitioner Family | DX: I10 Essential (primary) hypertension (principal) | CPT/HCPCS: 80053; 80061; 84443; 85025 ==

== ENCOUNTER 2022-09-16 20:51 | Emergency (ER) | payer BC, MEDICAID, SELFPAY ==
[2022-09-16 20:57] VITALS: BP 141/92; PULSE 61; RESP 16; TEMP 36.7; O2SAT 96; BMI 32.6
--- NOTE | 2022-09-16 21:05 | ECG_ITS ---
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 Measurements Intervals [place] Rate: 66 P: 41 [place]: 157 QRS: 39 QRSD: 90 T: 45 QT: 371 QTc: 391 Interpretive Statements SINUS RHYTHM Compared to ECG 01/12/2021 21:12:58 No significant changes Electronically Signed On 09-18-2022 7:43:39 BOWL TOPPER by Michael Munoz M.D. [id number]
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
[2022-09-16 21:40] LABS: Basophils # 0.1 10^3/uL (0.0-0.1); Basophils % 0.6 %; Eosinophils # 0.3 10^3/uL (0.0-0.8); Eosinophils % 2.4 %; Hematocrit 45.5 % (42.0-52.0); Hemoglobin 15.3 g/dL (11.7-16.6); Lymphocytes # 3.7 10^3/uL (0.8-4.8); Lymphocytes % 31.8 %; Mean Corpuscular HGB Conc 33.6 g/dL (30.0-36.0); Mean Corpuscular Hemoglobin 29.8 pg (28.0-34.0); Mean Corpuscular Volume 88.5 fl (80-94); Mean Platelet Volume 9.9 fL (7.4-10.4); Monocytes # 1.2 10^3/uL (0.2-0.9); Monocytes % 10.2 %; Neutrophils # 6.42 10^3/uL (1.8-7.7); Neutrophils % 54.6 %; Nucleated Red Blood Cells % 0 %; Platelet Count 373 10^3/cmm (130-400); Red Blood Count 5.14 10^6/uL (4.1-5.3); Red Cell Distribution Width 13.1 % (12.1-15.1); White Blood Count 11.8 10^3/uL (4.0-10.0)
[2022-09-16 22:14] LABS: Troponin(5th) Baseline 6 ng/L (0-15)
[2022-09-16 22:22] LABS: Alanine Aminotransferase 24 U/L (0-41); Albumin Level 4.1 g/dL (3.5-5.2); Alkaline Phosphatase 125 U/L (40-130); Anion Gap 16.1 (5-19); Aspartate Amino Transferase 16 U/L (0-40); Blood Urea Nitrogen 11 mg/dL (6-20); Calcium 9.4 mg/dL (8.5-10.5); Carbon Dioxide 23 mmol/L (22-29); Chloride 103 mmol/L (98-107); Creatine Phosphokinase 74 U/L (39-308); Globulin 2.6 g/dL (1.3-4.6); Glomerular Filtration Rate 106.5 mL/min (90-130); Glucose 105 mg/dL (65-115); NT Pro B Type Natriuretic Pept 6 pg/mL (0-125); Osmolality Calculated 286 mOsm/kg (285-295); Potassium 4.1 mmol/L (3.5-5.1); Sodium 138 mmol/L (136-145); Total Bilirubin 0.2 mg/dL (0.15-1.2); Total Protein 6.7 g/dL (6.6-8.7)
[2022-09-17 00:26] VITALS: BP 127/88; PULSE 62; RESP 16; O2SAT 98
--- NOTE | 2022-09-17 00:32 | W.ED.CHESTPA ---
Documented by User: EILEEN Ron 09/17/22 02:33 HPI - Chest Pain General: Chief Complaint: Chest Pain Stated Complaint: CP Time Seen by Provider: 09/17/22 00:23 History of Present Illness: Patient is a 42-year-old male comes to the ED via EMS with chest pain. He was given dose of 324 mg of aspirin while in route. Patient has a past medical history of GERD and hypertension. For about a week patient has had some on and off mild chest pain on the left side of chest that radiates down into the left arm. Today he was at rest and he said the pain got worse. It was a sharp pain on the left side of his chest that radiated down into his left arm. He says any movement or pressure on left side of chest wall because worsening pain. Pain was an 8 out of 10, but now here in the ED he says his pain is just a 3 out of 10. He denies any diaphoresis, nausea/vomiting or any other symptoms. He states that the chest pain is, similar to his GERD type pain but says this has lasted a lot longer than past GERD pain. Associated symptoms: Deny abdominal pain, dyspnea, fever(s), nausea, palpitations or vomiting Review of Systems Const: Denies: fever(s), chills or fatigue Eyes: Denies: change in vision or eye discomfort ENMT: Denies: throat pain, odynophagia, nasal discharge or nasal congestion Card: Reports: chest pain; Denies: palpitations, edema, swelling of feet/ankles, dyspnea on exertion or orthopnea Resp: Denies: dyspnea, productive cough or non-productive cough GI: Denies: abdominal pain, nausea, vomiting, diarrhea, constipation or hematochezia : Denies: flank pain, difficulty urinating, dysuria or hematuria Musc: Denies: neck pain, back pain or extremity swelling Skin/Breast: Denies: rash or new lesions Neuro: Denies: headache(s), numbness in extremities or weakness in extremities [facility] PFSH: Medical History Essential hypertension Gastroesophageal reflux disease Surgical History No history of previous surgery Family History Other Chronic kidney disease (CKD) Diabetes Hypertension Social History Smoking and tobacco status: current every day smoker Quit status (tobacco): has quit using tobacco Year quit tobacco: 2020 - PD x 24 Years Second hand smoke exposure: Yes Smoking risk assessment/counseling performed?: No Alcohol intake: current Alcohol intake frequency: holidays/special occasions only Counseling given: No Counseling given: No Lives independently: Yes Household members: spouse Housing: Manufactured/Mobile home Marital status: Highest education level completed: High School Graduate Current occupational status: employed 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 History of recent travel: No Current gender identity: Male Physical Exam Const: COMMON NORMALS: no acute distress, patient oriented x3, healthy appearing and alert GENERAL APPEARANCE: cooperative HENMT: COMMON NORMALS: normocephalic HEAD & SCALP: normocephalic MOUTH: Normal oral and palatal mucosa present THROAT: posterior oropharynx normal and uvula midline Neck/C-Spine: COMMON NORMALS: supple GENERAL: Yes normal visual inspection Chest: CHEST: Yes tenderness pectoral muscle on the left with point tenderness medially Resp: COMMON NORMALS: normal respiratory effort, No retractions, No use of accessory muscles and clear to auscultation bilaterally AUSCULTATION: clear to auscultation bilaterally Cardio: COMMON NORMALS: regular rate, regular rhythm, S1 normal heart sound present, S2 normal heart sound present, No gallops present (Cardio), No clicks present (Cardio), No murmurs present (Cardio) and Peripheral pulses 2+ throughout RATE: regular rate RHYTHM: regular rhythm HEART SOUNDS: S1 normal heart sound present and S2 normal heart sound present PERIPHERAL PULSES: Peripheral pulses 2+ throughout GI: COMMON NORMALS: Normal to inspection, nondistended, normoactive bowel sounds present, Soft to palpation, non-tender and no masses PALPATION: Yes Soft to palpation : COMMON NORMALS: Yes no CVA tenderness BLADDER/KIDNEY EXAM: Yes no CVA tenderness Back/Pelvis: COMMON NORMALS: no CVA tenderness Extremity: COMMON NORMALS: normal to inspection Neuro: COMMON NORMALS: patient oriented x3 SENSORIUM/ORIENTATION: Yes alert GAIT: Yes Normal gait present Skin: GENERAL SKIN EXAM: dry skin Course Vital Signs: Vital signs: Vital Signs Temperature 98.0 F 09/16/22 20:57 Pulse Rate 62 01/23/23 00:26 Respiratory Rate 16 09/17/22 00:56 Blood Pressure 127/88 09/17/22 00:26 Pulse Oximetry 98 09/17/22 00:26 Oxygen Delivery Me thod 09/17/22 00:26 MDM - Chest Pain Medical Decision Making Patient is a 42-year-old male comes to the ED via EMS with chest pain. He was given dose of 324 mg of aspirin while in route. Patient has a past medical history of GERD and hypertension. For about a week patient has had some on and off mild chest pain on the left side of chest that radiates down into the left arm. Today he was at rest and he said the pain got worse. It was a sharp pain on the left side of his chest that radiated down into his left arm. He says any movement or pressure on left side of chest wall because worsening pain. Vitals are stable. Patient appears nontoxic in no acute distress or pain. He does have some left pectoral muscle tenderness to palpation which reproduces his chest pain. The rest of exam is benign. CBC and CMP are unremarkable. Troponin negative. Chest x-ray shows no acute findings. EKG shows normal sinus rhythm with no ST segment elevation or depression seen. Patient was stable for discharge home and diagnosed with noncardiac chest pain. Follow-up with PCP in the next week for reevaluation. Return to ED precautions given. Patient understood and agreed with plan. Lab Data I reviewed the patient's lab results. 09/16/22 21:12 09/16/22 21:12 Radiology Impressions Chest X-Ray 09/16/22 21:30 IMPRESSION: No acute findings. Laboratory Results WBC 11.8 10^3/uL (4.0-10.0) H 09/16/22 21:12 RBC 5.14 10^6/uL (4.1-5.3) 09/16/22 21:12 Hgb 15.3 g/dL (11.7-16.6) 09/16/22 21:12 Hct 45.5 % (42.0-52.0) 09/16/22 21:12 MCV 88.5 fl (80-94) 09/16/22 21:12 MCH 29.8 pg (28.0-34.0) 09/16/22 21:12 MCHC 33.6 g/dL (30.0-36.0) 09/16/22 21:12 RDW 13.1 % (12.1-15.1) 09/16/22 21:12 Plt Count 373 10^3/cmm (130-400) 09/16/22 21:12 MPV 9.9 fL (7.4-10.4) 09/16/22 21:12 Neut % (Auto) 54.6 % 09/16/22 21:12 Lymph % (Auto) 31.8 % 09/16/22 21:12 [place] % (Auto) 10.2 % 09/16/22 21:12 Eos % (Auto) 2.4 % 09/16/22 21:12 Baso % (Auto) 0.6 % 09/16/22 21:12 Neut # (Auto) 6.42 10^3/uL (1.8-7.7) 09/16/22 21:12 Lymph # (Auto) 3.7 10^3/uL (0.8-4.8) 09/16/22 21:12 [place] # (Auto) 1.2 10^3/uL (0.2-0.9) H 09/16/22 21:12 Eos # (Auto) 0.3 10^3/uL (0.0-0.8) 09/16/22 21:12 Baso # (Auto) 0.1 10^3/uL (0.0-0.1) 09/16/22 21:12 Nucleated RBC % (auto) 0 % 09/16/22 21:12 Nucleated RBCs # 0.0 /100WBC 09/16/22 21:12 Sodium 138 mmol/L (136-145) 09/16/22 21:12 Potassium 4.1 mmol/L (3.5-5.1) 09/16/22 21:12 Chloride 103 mmol/L (98-107) 09/16/22 21:12 Carbon Dioxide 23 mmol/L (22-29) 09/16/22 21:12 Anion Gap 16.1 (5-19) 09/16/22 21:12 BUN 11 mg/dL (6-20) 09/16/22 21:12 Creatinine 0.8 mg/dL (0.7-1.2) 09/16/22 21:12 GFR Calculation 106.5 mL/min (90-130) 09/16/22 21:12 Glucose 105 mg/dL (65-115) 09/16/22 21:12 Calculated Osmolality 286 mOsm/kg (285-295) 09/16/22 21:12 Calcium 9.4 mg/dL (8.5-10.5) 09/16/22 21:12 Total Bilirubin 0.2 mg/dL (0.15-1.2) 09/16/22 21:12 AST 16 U/L (0-40) 09/16/22 21:12 ALT 24 U/L (0-41) 09/16/22 21:12 Alkaline Phosphatase 125 U/L (40-130) 09/16/22 21:12 Creatine Kinase 74 U/L (39-308) 09/16/22 21:12 Troponin T Baseline 6 ng/L (0-15) 09/16/22 21:12 NT-Pro-B Natriuret Pep 6 pg/mL (0-125) 09/16/22 21:12 Total Protein 6.7 g/dL (6.6-8.7) 09/16/22 21:12 Albumin 4.1 g/dL (3.5-5.2) 09/16/22 21:12 Globulin 2.6 g/dL (1.3-4.6) 09/16/22 21:12 EKG Data EKG 1: EKG interpretation date: 09/17/22 Interpretation: Normal sinus rhythm, no ST segment elevation or depression seen. Early repolarization noted. Discharge Plan Discharge Patient Disposition: Home Clinical Impression: Non-cardiac chest pain Condition: Stable Prescriptions: No Action cholecalciferol (vitamin D3) 125 mcg (5,000 unit) capsule 125 mcg PO DAILY 30 Days Qty: 30 5RF nitroglycerin 0.4 mg tablet, sublingual 0.4 mg sublingual Q5M PRN (Reason: chest pain) 30 Days Qty: 30 0RF Rx Instructions: do not exceed 3 doses per episode lansoprazole [Prevacid] 30 mg capsule,delayed release(DR/EC) 30 mg PO DAILY Qty: 30 5RF lisinopril 20 mg tablet 20 mg PO DAILY 30 Days Qty: 30 5RF buspirone 30 mg tablet 30 mg PO BID Qty: 60 5RF cyclobenzaprine 10 mg tablet 10 mg PO BID PRN (Reason: muscle spasm) Qty: 60 5RF ibuprofen 800 mg tablet 800 mg PO Q8H PRN (Reason: pain) 30 Days Qty: 30 5RF Tylenol 325 mg Tablet 325 - 650 mg PO QID PRN (Reason: Pain) aspirin 81 mg tablet,delayed release (DR/EC) 81 mg PO DAILY@0500 Discharge Orders: Discharge ED (Routine); Ordered 09/17/22 Ordered By: Kadeem Alarcon Referrals: Rhona Armstrong FNP-C [Primary Care Provider] - Discharge Diet: Regular Discharge Activity: Increase activity as tolerated Patient Instructions: Noncardiac Chest Pain (ED) Activity Restrictions/Additional Instructions: Follow-up with medical provider as directed in the next 5 to 7 days for reevaluation. Continue taking all home medications as previously prescribed. Return to the ER or your medical provider if condition worsens. Please read and understand discharge instructions. Thank you for choosing [facility] for your healthcare needs today. Please realize this is an emergency room and that we are providing you with a medical screening exam and this may not be complete and all inclusive of all the testing and or work up that you may need to determine your ailment or severity of your illness. It is very important that you follow up as instructed or that you return to the Emergency Department should you have concerns or if your condition changes or worsens in any way. Coding Level of Care Code ED Facility Environmental Technician for Chg Fwd Exam Comprehensive Documented by User: Kei Mueller DO 09/18/22 12:23 HPI - Chest Pain General: Chief Complaint: Chest Pain Stated Complaint: CP Time Seen by Provider: 09/17/22 00:23 [facility] PFSH: Medical History Essential hypertension Gastroesophageal reflux disease Surgical History No history of previous surgery Family History Other Chronic kidney disease (CKD) Diabetes Hypertension Social History Smoking and tobacco status: current every day smoker Quit status (tobacco): has quit using tobacco Year quit tobacco: 2020 - PD x 24 Years Second hand smoke exposure: Yes Smoking risk assessment/counseling performed?: No Alcohol intake: current Alcohol intake frequency: holidays/special occasions only Counseling given: No Counseling given: No Lives independently: Yes Household members: spouse Housing: Manufactured/Mobile home Marital status: Highest education level completed: High School Graduate Current occupational status: employed 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 He was given dose of 324 mg of aspirin while in route. Patient has a past medical history of GERD and hypertension. For about a week patient has had some on and off mild chest pain on the left side of chest that radiates down into the left arm. Today he was at rest and he said the pain got worse. It was a sharp pain on the left side of his chest that radiated down into his left arm. He says any movement or pressure on left side of chest wall because worsening pain. Vitals are stable. Patient appears nontoxic in no acute distress or pain. He does have some left pectoral muscle tenderness to palpation which reproduces his chest pain. The rest of exam is benign. CBC and CMP are unremarkable. Troponin negative. Chest x-ray shows no acute findings. EKG shows normal sinus rhythm with no ST segment elevation or depression seen. Patient was stable for discharge home and diagnosed with noncardiac chest pain. Follow-up with PCP in the next week for reevaluation. Return to ED precautions given. Patient understood and agreed with plan. This patient was originally seen by Mr. Agnes PA-C. I agree with his history, evaluation, and treatment. Lab Data 09/16/22 21:12 09/16/22 21:12 Radiology Impressions Chest X-Ray 09/16/22 21:30 IMPRESSION: No acute findings. Laboratory Results WBC 11.8 10^3/uL (4.0-10.0) H 09/16/22 21:12 RBC 5.14 10^6/uL (4.1-5.3) 09/16/22 21:12 Hgb 15.3 g/dL (11.7-16.6) 09/16/22 21:12 Hct 45.5 % (42.0-52.0) 09/16/22 21:12 MCV 88.5 fl (80-94) 09/16/22 21:12 MCH 29.8 pg (28.0-34.0) 09/16/22 21:12 MCHC 33.6 g/dL (30.0-36.0) 09/16/22 21:12 RDW 13.1 % (12.1-15.1) 09/16/22 21:12 Plt Count 373 10^3/cmm (130-400) 09/16/22 21:12 MPV 9.9 fL (7.4-10.4) 09/16/22 21:12 Neut % (Auto) 54.6 % 09/16/22 21:12 Lymph % (Auto) 31.8 % 09/16/22 21:12 [place] % (Auto) 10.2 % 09/16/22 21:12 Eos % (Auto) 2.4 % 09/16/22 21:12 Baso % (Auto) 0.6 % 09/16/22 21:12 Neut # (Auto) 6.42 10^3/uL (1.8-7.7) 09/16/22 21:12 Lymph # (Auto) 3.7 10^3/uL (0.8-4.8) 09/16/22 21:12 [place] # (Auto) 1.2 10^3/uL (0.2-0.9) H 09/16/22 21:12 Eos # (Auto) 0.3 10^3/uL (0.0-0.8) 09/16/22 21:12 Baso # (Auto) 0.1 10^3/uL (0.0-0.1) 09/16/22 21:12 Nucleated RBC % (auto) 0 % 09/16/22 21:12 Nucleated RBCs # 0.0 /100WBC 09/16/22 21:12 Sodium 138 mmol/L (136-145) 09/16/22 21:12 Potassium 4.1 mmol/L (3.5-5.1) 09/16/22 21:12 Chloride 103 mmol/L (98-107) 09/16/22 21:12 Carbon Dioxide 23 mmol/L (22-29) 09/16/22 21:12 Anion Gap 16.1 (5-19) 09/16/22 21:12 BUN 11 mg/dL (6-20) 09/16/22 21:12 Creatinine 0.8 mg/dL (0.7-1.2) 09/16/22 21:12 GFR Calculation 106.5 mL/min (90-130) 09/16/22 21:12 Glucose 105 mg/dL (65-115) 09/16/22 21:12 Calculated Osmolality 286 mOsm/kg (285-295) 09/16/22 21:12 Calcium 9.4 mg/dL (8.5-10.5) 09/16/22 21:12 Total Bilirubin 0.2 mg/dL (0.15-1.2) 09/16/22 21:12 AST 16 U/L (0-40) 09/16/22 21:12 ALT 24 U/L (0-41) 09/16/22 21:12 Alkaline Phosphatase 125 U/L (40-130) 09/16/22 21:12 Creatine Kinase 74 U/L (39-308) 09/16/22 21:12 Troponin T Baseline 6 ng/L (0-15) 09/16/22 21:12 NT-Pro-B Natriuret Pep 6 pg/mL (0-125) 09/16/22 21:12 Total Protein 6.7 g/dL (6.6-8.7) 09/16/22 21:12 Albumin 4.1 g/dL (3.5-5.2) 09/16/22 21:12 Globulin 2.6 g/dL (1.3-4.6) 09/16/22 21:12 Discharge Plan Discharge Patient Disposition: Home Clinical Impression: Non-cardiac chest pain Condition: Stable Prescriptions: No Action cholecalciferol (vitamin D3) 125 mcg (5,000 unit) capsule 125 mcg PO DAILY 30 Days Qty: 30 5RF nitroglycerin 0.4 mg tablet, sublingual 0.4 mg sublingual Q5M PRN (Reason: chest pain) 30 Days Qty: 30 0RF Rx Instructions: do not exceed 3 doses per episode lansoprazole [Prevacid] 30 mg capsule,delayed release(DR/EC) 30 mg PO DAILY Qty: 30 5RF lisinopril 20 mg tablet 20 mg PO DAILY 30 Days Qty: 30 5RF buspirone 30 mg tablet 30 mg PO BID Qty: 60 5RF cyclobenzaprine 10 mg tablet 10 mg PO BID PRN (Reason: muscle spasm) Qty: 60 5RF ibuprofen 800 mg tablet 800 mg PO Q8H PRN (Reason: pain) 30 Days Qty: 30 5RF Tylenol 325 mg Tablet 325 - 650 mg PO QID PRN (Reason: Pain) aspirin 81 mg tablet,delayed release (DR/EC) 81 mg PO DAILY@0500 Discharge Orders: Discharge ED (Routine); Ordered 09/17/22 Ordered By: Kadeem Alarcon Referrals: Rhona Armstrong FNP-C [Primary Care Provider] - Discharge Diet: Regular Discharge Activity: Increase activity as tolerated Patient Instructions: Noncardiac Chest Pain (ED) Activity Restrictions/Additional Instructions: Follow-up with medical provider as directed in the next 5 to 7 days for reevaluation. Continue taking all home medications as previously prescribed. Return to the ER or your medical provider if condition worsens. Please read and understand discharge instructions. Thank you for choosing [facility] for your healthcare needs today. Please realize this is an emergency room and that we are providing you with a medical screening exam and this may not be complete and all inclusive of all the testing and or work up that you may need to determine your ailment or severity of your illness. It is very important that you follow up as instructed or that you return to the Emergency Department should you have concerns or if your condition changes or worsens in any way. Coding Level of Care Code ED Facility Environmental Technician for [facility] Exam Comprehensive
[2022-09-17 00:56] VITALS: RESP 16
== END 2022-09-17 00:57 | disposition home or self-care (01) ==
PROVIDERS: Emergency Medicine; Emergency Provider Physician Assistant; PCP Nurse Practitioner Family
DX: R07.89 Other chest pain (principal); Z79.82 Long term (current) use of aspirin; I10 Essential (primary) hypertension; F17.210 Nicotine dependence, cigarettes, uncomplicated
CPT/HCPCS: 71045; 80053; 82550; 83880; 84484; 85025; 93005; 99285

== ENCOUNTER → 2022-10-03 09:36 | Outpatient (BNVA) | payer BC, MEDICAID, SELFPAY | PROVIDERS: PCP Nurse Practitioner Family; Visit Provider Nurse Practitioner Family | DX: G58.9 Mononeuropathy, unspecified (principal); M79.18 Myalgia, other site; R07.89 Other chest pain | CPT/HCPCS: 72040; 73030 ==

== ENCOUNTER 2022-10-16 21:37 | Emergency (ER) | payer BC, MEDICAID, SELFPAY ==
--- NOTE | 2022-10-16 21:38 | XRR_ITS ---
PROCEDURE INFORMATION: Exam: XR Chest Exam date and time: 10/16/2022 9:57 PM Age: 42 years old Clinical indication: Chest wall pain and left-sided; Additional info: Cp TECHNIQUE: Imaging protocol: Radiologic exam of the chest. Views: 1 view. COMPARISON: CR (CHEST, ) 09/16/2022 10:13 PM FINDINGS: Lungs: Unremarkable. No consolidation. Pleural spaces: Unremarkable. No pleural effusion. No pneumothorax. Heart/Mediastinum: Unremarkable. No cardiomegaly. Bones/joints: Unremarkable. XR/XR chest 1V portable [id number] IMPRESSION: No acute findings.
--- NOTE | 2022-10-16 21:38 | ECG_ITS ---
[facility] Test Date: 2022-10-16 Pat Name: Celestine Funez Department: Room: Gender: Male Retention Manager: : 1980 Requested By: Agnieszka Tamayo Order Number: [id number] Shira MD: Micheal Munoz M.D. Measurements Intervals [place] Rate: 79 P: 35 MO: 154 QRS: 44 QRSD: 92 T: 41 QT: 361 QTc: 414 Interpretive Statements SINUS RHYTHM WITH SINUS ARRHYTHMIA Compared to ECG 09/16/2022 21:05:18 No significant changes Electronically Signed On 10-17-2022 10:26:52 PROPERTY DISPOSAL MANAGER by Michael Munoz M.D. [email or web address] system [id number]
[2022-10-16 21:41] VITALS: BP 153/88; PULSE 79; RESP 20; TEMP 37.3; O2SAT 96
--- NOTE | 2022-10-16 22:22 | W.ED.CHESTPA ---
HPI - Chest Pain General: Chief Complaint: Chest Pain Stated Complaint: chest pain radiating to arms Time Seen by Provider: 10/16/22 22:12 Source: patient Mode of arrival: ambulatory Limitations: no limitations History of Present Illness: 42-year-old male states that he had chest pain since afternoon states that sharp pain in the center of his chest is worse with palpation states the pain goes down the left arm he denies any diaphoresis denies any nausea denies any dyspnea. He had no cough or fevers. Associated symptoms: Deny abdominal pain, dyspnea, fever(s), nausea or vomiting Review of Systems Const: Denies: fever(s), chills, body aches or change in appetite Eyes: Denies: blurry vision or eye discomfort ENMT: Denies: throat pain or dental pain Card: Reports: chest pain Resp: Denies: dyspnea GI: Denies: abdominal pain, nausea, vomiting or diarrhea : Denies: dysuria Musc: Denies: neck pain or back pain Skin/Breast: Denies: rash Neuro: Denies: headache(s) Psych: Denies: depression Mic/Lymph: Denies: easy bruising All/Imm: Denies: urticaria PFSH ED PFSH: Medical History Essential hypertension Gastroesophageal reflux disease Surgical History No history of previous surgery Family History Other Chronic kidney disease (CKD) Diabetes Hypertension Social History Smoking and tobacco status: current every day smoker Quit status (tobacco): has quit using tobacco Year quit tobacco: 2020 - PD x 24 Years Second hand smoke exposure: Yes Smoking risk assessment/counseling performed?: No Alcohol intake: current Alcohol intake frequency: holidays/special occasions only Counseling given: No Counseling given: No Lives independently: Yes Household members: spouse Housing: Manufactured/Mobile home Marital status: Highest education level completed: High School Graduate Current occupational status: employed 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 Current gender identity: Male Physical Exam Const: COMMON NORMALS: no acute distress, patient oriented x3 and healthy appearing HENMT: COMMON NORMALS: normocephalic and atraumatic HEAD & SCALP: normocephalic and atraumatic Eye: COMMON NORMALS: Equal, round and reactive pupils present and EOMs intact bilaterally PUPIL: Yes Equal, round and reactive pupils present Neck/C-Spine: COMMON NORMALS: full ROM and supple Chest: COMMONS NORMALS: normal palpation of entire chest wall OTHER: tender over left chest reproduces pain Resp: COMMON NORMALS: normal respiratory effort, No retractions, No use of accessory muscles and clear to auscultation bilaterally AUSCULTATION: clear to auscultation bilaterally Cardio: COMMON NORMALS: regular rate, regular rhythm and No murmurs present (Cardio) RATE: regular rate RHYTHM: regular rhythm GI: COMMON NORMALS: Normal to inspection, nondistended, normoactive bowel sounds present, Soft to palpation, non-tender and no masses PALPATION: Yes Soft to palpation Extremity: COMMON NORMALS: normal to inspection and full ROM Neuro: COMMON NORMALS: patient oriented x3, moves all extremities and no focal motor deficits Psych: COMMON NORMALS: mental status grossly normal, Normal thought process present and cooperative THOUGHT PROCESS: Normal thought process present Skin: COMMON NORMALS: no rashes or lesions noted and no wounds GENERAL SKIN EXAM: no rashes or lesions noted Course Vital Signs: Vital signs: Vital Signs Temperature 99.1 F 10/16/22 21:41 Pulse Rate 79 10/16/22 23:09 Respiratory Rate 18 10/16/22 22:35 Blood Pressure 144/109 10/16/22 23:09 Pulse Oximetry 92 10/16/22 23:09 Oxygen Delivery Me thod 10/16/22 23:09 MDM - Chest Pain Medical Decision Making Patient presents for chest pain is likely muscular he is point tender on exam he had refused morphine here initial troponin and EKG are normal he became upset here I tried to speak to him and get him to stay for his 2-hour troponin but he adamantly refused. Informed him that 1 troponin is not really enough to rule out ACS he understands his medical decision-making passing and signed out AGAINST MEDICAL ADVICE. Lab Data 10/16/22 22:20 10/16/22 22:20 Radiology Impressions Chest X-Ray 10/16/22 21:38 IMPRESSION: No acute findings. Laboratory Results WBC 14.7 10^3/uL (4.0-10.0) H 10/16/22 22:20 RBC 5.05 10^6/uL (4.1-5.3) 10/16/22 22:20 Hgb 14.9 g/dL (11.7-16.6) 10/16/22 22:20 Hct 44.9 % (42.0-52.0) 10/16/22 22:20 MCV 88.9 fl (80-94) 10/16/22 22:20 MCH 29.5 pg (28.0-34.0) 10/16/22 22:20 MCHC 33.2 g/dL (30.0-36.0) 10/16/22 22:20 RDW 13.5 % (12.1-15.1) 10/16/22 22:20 Plt Count 346 10^3/cmm (130-400) 10/16/22 22:20 MPV 9.5 fL (7.4-10.4) 10/16/22 22:20 Neut % (Auto) 63.1 % 10/16/22 22:20 Lymph % (Auto) 24.3 % 10/16/22 22:20 [place] % (Auto) 9.5 % 10/16/22 22:20 Eos % (Auto) 2.2 % 10/16/22 22:20 Baso % (Auto) 0.5 % 10/16/22 22:20 Neut # (Auto) 9.28 10^3/uL (1.8-7.7) H 10/16/22 22:20 Lymph # (Auto) 3.6 10^3/uL (0.8-4.8) 10/16/22 22:20 [place] # (Auto) 1.4 10^3/uL (0.2-0.9) H 10/16/22 22:20 Eos # (Auto) 0.3 10^3/uL (0.0-0.8) 10/16/22 22:20 Baso # (Auto) 0.1 10^3/uL (0.0-0.1) 10/16/22 22:20 Nucleated RBC % (auto) 0 % 10/16/22 22:20 Nucleated RBCs # 0.0 /100WBC 10/16/22 22:20 Sodium 139 mmol/L (136-145) 10/16/22 22:20 Potassium 3.4 mmol/L (3.5-5.1) L 10/16/22 22:20 Chloride 106 mmol/L (98-107) 10/16/22 22:20 Carbon Dioxide 23 mmol/L (22-29) 10/16/22 22:20 Anion Gap 13.4 (5-19) 10/16/22 22:20 BUN 8 mg/dL (6-20) 10/16/22 22:20 Creatinine 0.8 mg/dL (0.7-1.2) 10/16/22 22:20 GFR Calculation 106.5 mL/min (90-130) 10/16/22 22:20 Glucose 111 mg/dL (65-115) 10/16/22 22:20 Calculated Osmolality 287 mOsm/kg (285-295) 10/16/22 22:20 Calcium 8.8 mg/dL (8.5-10.5) 10/16/22 22:20 Total Bilirubin 0.2 mg/dL (0.15-1.2) 10/16/22 22:20 AST 15 U/L (0-40) 10/16/22 22:20 ALT 25 U/L (0-41) 10/16/22 22:20 Alkaline Phosphatase 107 U/L (40-130) 10/16/22 22:20 Troponin T Baseline 6 ng/L (0-15) 10/16/22 22:20 Total Protein 6.4 g/dL (6.6-8.7) L 10/16/22 22:20 Albumin 4.0 g/dL (3.5-5.2) 10/16/22 22:20 Globulin 2.4 g/dL (1.3-4.6) 10/16/22 22:20 EKG Data EKG 1: I personally reviewed and interpreted this EKG as follows: EKG interpretation date: 10/16/22 EKG interpretation time: 21:46 Interpretation: nsr hr [address] or t wave abnormalities qrs 92 qtc 395 Discharge Plan Discharge Patient Disposition: Left Against Medical Advice Clinical Impression: Chest pain Condition: Stable Prescriptions: No Action cholecalciferol (vitamin D3) 125 mcg (5,000 unit) capsule 125 mcg PO DAILY 30 Days Qty: 30 5RF nitroglycerin 0.4 mg tablet, sublingual 0.4 mg sublingual Q5M PRN (Reason: chest pain) 30 Days Qty: 30 0RF Rx Instructions: do not exceed 3 doses per episode prednisone 10 mg tablets,dose pack See Rx Instructions PO PER PKG DIR Qty: 21 0RF Rx Instructions: PO PER PKG DIR lansoprazole [Prevacid] 30 mg capsule,delayed release(DR/EC) 30 mg PO DAILY Qty: 30 5RF lisinopril 20 mg tablet 20 mg PO DAILY 30 Days Qty: 30 5RF buspirone 30 mg tablet 30 mg PO BID Qty: 60 5RF cyclobenzaprine 10 mg tablet 10 mg PO BID PRN (Reason: muscle spasm) Qty: 60 5RF ibuprofen 800 mg tablet 800 mg PO Q8H PRN (Reason: pain) 30 Days Qty: 30 5RF pantoprazole [Protonix] 40 mg tablet,delayed release (DR/EC) 40 mg PO DAILY 30 Days Qty: 30 5RF Tylenol 325 mg Tablet 325 - 650 mg PO QID PRN (Reason: Pain) aspirin 81 mg tablet,delayed release (DR/EC) 81 mg PO DAILY@0500 Referrals: Rhona Armstrong FNP-C [Primary Care Provider] - Coding Level of Care Code 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
[2022-10-16 22:25] LABS: Basophils # 0.1 10^3/uL (0.0-0.1); Basophils % 0.5 %; Eosinophils # 0.3 10^3/uL (0.0-0.8); Eosinophils % 2.2 %; Hematocrit 44.9 % (42.0-52.0); Hemoglobin 14.9 g/dL (11.7-16.6); Lymphocytes # 3.6 10^3/uL (0.8-4.8); Lymphocytes % 24.3 %; Mean Corpuscular HGB Conc 33.2 g/dL (30.0-36.0); Mean Corpuscular Hemoglobin 29.5 pg (28.0-34.0); Mean Corpuscular Volume 88.9 fl (80-94); Mean Platelet Volume 9.5 fL (7.4-10.4); Monocytes # 1.4 10^3/uL (0.2-0.9); Monocytes % 9.5 %; Neutrophils # 9.28 10^3/uL (1.8-7.7); Neutrophils % 63.1 %; Nucleated Red Blood Cells % 0 %; Platelet Count 346 10^3/cmm (130-400); Red Blood Count 5.05 10^6/uL (4.1-5.3); Red Cell Distribution Width 13.5 % (12.1-15.1); White Blood Count 14.7 10^3/uL (4.0-10.0)
[2022-10-16] MEDS: aspirin 81 mg Chew Tablet 324 MG PO (22:27)
[2022-10-16 22:35] VITALS: BP 145/100; PULSE 76; RESP 18; O2SAT 93
[2022-10-16 22:43] LABS: Alanine Aminotransferase 25 U/L (0-41); Alkaline Phosphatase 107 U/L (40-130); Anion Gap 13.4 (5-19); Aspartate Amino Transferase 15 U/L (0-40); Blood Urea Nitrogen 8 mg/dL (6-20); Calcium 8.8 mg/dL (8.5-10.5); Carbon Dioxide 23 mmol/L (22-29); Chloride 106 mmol/L (98-107); Globulin 2.4 g/dL (1.3-4.6); Glomerular Filtration Rate 106.5 mL/min (90-130); Glucose 111 mg/dL (65-115); Osmolality Calculated 287 mOsm/kg (285-295); Potassium 3.4 mmol/L (3.5-5.1); Sodium 139 mmol/L (136-145); Total Bilirubin 0.2 mg/dL (0.15-1.2); Total Protein 6.4 g/dL (6.6-8.7)
[2022-10-16 22:44] LABS: Troponin(5th) Baseline 6 ng/L (0-15)
[2022-10-16 23:09] VITALS: BP 144/109; PULSE 79; O2SAT 92
[2022-10-17 00:48] VITALS: BP 122/95; PULSE 61; O2SAT 95
== END 2022-10-17 00:51 | disposition left against medical advice (07) ==
PROVIDERS: Emergency Provider Emergency Medicine; PCP Nurse Practitioner Family
DX: R07.9 Chest pain, unspecified (principal); Z53.21 Procedure and treatment not carried out due to patient leaving prior to being seen by health care provider; Z79.82 Long term (current) use of aspirin; I10 Essential (primary) hypertension; F17.210 Nicotine dependence, cigarettes, uncomplicated
CPT/HCPCS: 71045; 80053; 84484; 85025; 93005; 99285

== ENCOUNTER 2022-11-07 07:46 | Outpatient (CLI) | payer BC, MEDICAID, SELFPAY ==
--- NOTE | 2022-11-07 08:45 | MR_ITS ---
WS: [id number] EXAMINATION: MR shoulder LT wo con* [id number] ORDER DATE: 11/07/2022 8:21 AM COMPARISON: None. HISTORY: M25.519 - Pain in unspecified shoulder CONTRAST: None. TECHNIQUE: Axial T2 STAR, coronal proton density fat sat, sagittal T2 fat sat, sagittal proton densit y fat sat, axial proton density fat sat, coronal T2 fat sat, and coronal T1 performed. After contrast , axial T1 fat sat, coronal T1 fat sat, and sagittal T1 fat sat were performed. FINDINGS: Mild degenerative arthritis AC joint with mild edema. Mild downsloping acromion with slight impingeme nt on the distal supraspinatus. Mild tendinopathy distal supraspinatus. No acute rotator cuff tears. Normal infraspinatus. Normal teres minor. Normal subscapularis tendon. Biceps tendon appears intact within the bicipital groove. Glenoid labrum appears grossly intact. Norm al bone marrow signal. Normal bone marrow signal in the glenoid. Slight subchondral cystic changes at the greater tuberosity. Normal intra-articular biceps tendon. Biceps labral anchor appears intact. MR/MR shoulder LT wo con* [id number] IMPRESSION: 1. Mild degenerative arthritis AC joint with a small amount of fluid and edema . Mild downsloping of the acromion with impingement on the distal supraspinatus . 2. Mild tendinopathy distal supraspinatus. 3. Rotator cuff is intact. No acute appearing rotator cuff tears. 4. Biceps tendon intact within the bicipital groove. 5. Normal biceps labral anchor. 6. No other acute findings.
--- NOTE | 2022-11-07 15:15 | MR_ITS ---
WS: [id number] MRI CERVICAL SPINE NONCONTRAST TECHNIQUE: Sagittal T1, T2 and STIR imaging. Axial T2, gradient, and fiesta imaging. CLINICAL INFORMATION: G58.9 - Mononeuropathy, unspecified COMPARISON: None. FINDINGS: Straightening of the normal cervical lordosis. Cord signal is normal. No high-grade central canal donis rowing. C2-C3: Normal. C3-C4: Mild facet arthropathy. Spinal canal and foramen are patent C4-C5: Slight disc bulging and osteophytic ridging. Mild facet arthropathy. Mild LEFT and no signific ant RIGHT foraminal narrowing. Spinal canal is patent. C5-C6: Disc osteophytic ridging. Mild facet arthropathy. Mild LEFT foraminal narrowing. C6-C7: No significant disc bulging. Spinal canal and foramen are patent. C7-T1: Normal. Visualized brain stem structures: Normal. Prevertebral soft tissues: Normal. MR/MR cervical spin wo con* [id number] IMPRESSION: 1. Straightening of the normal cervical lordosis. Cord signal is normal. No si gnificant central canal narrowing. 2. Minimal disc bulging C4-C5 and C5-C6. 3. Mild LEFT C5-C6 foraminal narrowing. No significant nerve root impingement. 4. Mild facet arthropathy C4-C5 C5-C6.
== END 2022-11-07 07:47 | disposition home or self-care (01) ==
LOC: RAD 07:49
PROVIDERS: PCP Nurse Practitioner Family; Visit Provider Nurse Practitioner Family
DX: G58.9 Mononeuropathy, unspecified (principal); G89.29 Other chronic pain; M48.9 Spondylopathy, unspecified; M50.321 Other cervical disc degeneration at C4-C5 level; M48.02 Spinal stenosis, cervical region; M50.322 Other cervical disc degeneration at C5-C6 level; M19.012 Primary osteoarthritis, left shoulder
CPT/HCPCS: 72141; 73221

== ENCOUNTER 2022-12-10 21:28 | Emergency (ER) | payer BC, MEDICAID, SELFPAY ==
--- NOTE | 2022-12-10 21:34 | XRR_ITS ---
PROCEDURE INFORMATION: Exam: XR Chest Exam date and time: 12/10/2022 9:52 PM Age: 42 years old Clinical indication: Pain; Chest pressure; Additional info: Cp TECHNIQUE: Imaging protocol: Radiologic exam of the chest. Views: 1 view. COMPARISON: CR XR chest 1V portable [id number] 10/16/2022 9:57 PM FINDINGS: Lungs: Unremarkable. No consolidation. Pleural spaces: Unremarkable. No pleural effusion. No pneumothorax. Heart/Mediastinum: Unremarkable. No cardiomegaly. Bones/joints: Unremarkable. XR/XR chest 1V portable [id number] IMPRESSION: No acute findings.
[2022-12-10 21:45] VITALS: BP 124/83; PULSE 58; RESP 22; TEMP 36.6; O2SAT 97; BMI 25.8
--- NOTE | 2022-12-10 21:47 | ECG_ITS ---
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 Measurements Intervals [place] Rate: 53 P: 80 HI: 163 QRS: 78 QRSD: 104 T: 72 QT: 426 QTc: 402 Interpretive Statements SINUS BRADYCARDIA Compared to ECG 10/16/2022 21:46:58 Sinus rhythm no longer present Sinus arrhythmia no longer present Electronically Signed On 12-11-2022 14:49:55 CDT by Michael Munoz M.D. [email or web address]
--- NOTE | 2022-12-10 22:00 | W.ED.CHESTPA ---
HPI - Chest Pain General: Chief Complaint: Chest Pain Stated Complaint: CP Time Seen by Provider: 12/10/22 21:32 Source: patient and EMS Mode of arrival: EMS Limitations: no limitations History of Present Illness: 42-year-old male states he been having some central and left-sided chest pain over the last 4 to 5 hours. He states the very sharp pain is much worse with touch as well. He denies any fever denies any cough he denies any shortness of breath he has no nausea or vomiting. He does not member any injuries. Associated symptoms: Deny abdominal pain, dyspnea, fever(s), nausea or vomiting Review of Systems Const: Denies: fever(s), chills or body aches ENMT: Denies: throat pain Card: Reports: chest pain Resp: Denies: dyspnea GI: Denies: abdominal pain, nausea, vomiting or diarrhea Musc: Denies: neck pain or back pain Skin/Breast: Denies: rash Neuro: Denies: headache(s) Psych: Denies: depression PFSH ED PFSH: Medical History Essential hypertension Gastroesophageal reflux disease Surgical History No history of previous surgery Family History Other Chronic kidney disease (CKD) Diabetes Hypertension Social History Smoking and tobacco status: current every day smoker Quit status (tobacco): has quit using tobacco Year quit tobacco: 2020 - PD x 24 Years Second hand smoke exposure: Yes Smoking risk assessment/counseling performed?: No Alcohol intake: current Alcohol intake frequency: holidays/special occasions only Counseling given: No Counseling given: No Lives independently: Yes Household members: spouse Housing: Manufactured/Mobile home Marital status: Highest education level completed: High School Graduate Current occupational status: employed 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 Current gender identity: Male Physical Exam Const: COMMON NORMALS: no acute distress, patient oriented x3 and healthy appearing HENMT: COMMON NORMALS: normocephalic and atraumatic HEAD & SCALP: normocephalic and atraumatic Eye: COMMON NORMALS: conjunctivae normal CONJUNCTIVA: Yes conjunctivae normal Neck/C-Spine: COMMON NORMALS: full ROM and supple Chest: COMMONS NORMALS: normal inspection of the chest OTHER: Point tender over left chest reproduces the pain Resp: COMMON NORMALS: normal respiratory effort, No retractions, No use of accessory muscles and clear to auscultation bilaterally AUSCULTATION: clear to auscultation bilaterally Cardio: COMMON NORMALS: regular rate, regular rhythm and No murmurs present (Cardio) RATE: regular rate RHYTHM: regular rhythm GI: COMMON NORMALS: Normal to inspection, nondistended, normoactive bowel sounds present, Soft to palpation, non-tender and no masses PALPATION: Yes Soft to palpation Extremity: COMMON NORMALS: normal to inspection and full ROM Neuro: COMMON NORMALS: patient oriented x3, moves all extremities and no focal motor deficits Psych: COMMON NORMALS: mental status grossly normal, Normal thought process present and cooperative THOUGHT PROCESS: Normal thought process present Skin: COMMON NORMALS: no rashes or lesions noted and no wounds GENERAL SKIN EXAM: no rashes or lesions noted Course Vital Signs: Vital signs: Vital Signs Temperature 97.8 F 12/10/22 21:45 Pulse Rate 58 L 12/10/22 21:45 Respiratory Rate 22 H 12/10/22 21:45 Blood Pressure 124/83 12/10/22 21:45 Pulse Oximetry 97 12/10/22 21:45 Oxygen Delivery Me thod Room Air 12/10/22 21:45 MDM - Chest Pain Medical Decision Making Patient presents for chest pains likely muscular in nature he is point tender on his exam. His initial troponin here is normal x-ray is normal no signs of pulmonary embolism or acute coronary syndrome. Patient refused his 2-hour troponin I did recommend draw for 2-hour troponin just to make sure it was not cardiac in nature but he refused he states he rather go home and follow-up with his PCP. I do believe it is likely muscle skeletal he is stable for discharge she is to follow-up with PCP and return if worsening. Lab Data 12/10/22 22:02 12/10/22 22:02 Radiology Impressions Chest X-Ray 12/10/22 21:34 IMPRESSION: No acute findings. Laboratory Results WBC 13.6 10^3/uL (4.0-10.0) H 12/10/22 22:02 RBC 4.94 10^6/uL (4.1-5.3) 12/10/22 22:02 Hgb 14.7 g/dL (11.7-16.6) 12/10/22 22:02 Hct 43.8 % (42.0-52.0) 12/10/22 22:02 MCV 88.7 fl (80-94) 12/10/22 22:02 MCH 29.8 pg (28.0-34.0) 12/10/22 22: MCHC 33.6 g/dL (30.0-36.0) 12/10/22 22:02 RDW 13.3 % (12.1-15.1) 12/10/22 22:02 Plt Count 340 10^3/cmm (130-400) 12/10/22 22:02 MPV 9.8 fL (7.4-10.4) 12/10/22 22:02 Neut % (Auto) 63.9 % 12/10/22 22:02 Lymph % (Auto) 24.2 % 12/10/22 22:02 [place] % (Auto) 8.8 % 12/10/22 22:02 Eos % (Auto) 2.1 % 12/10/22 22:02 Baso % (Auto) 0.5 % 12/10/22 22: Neut # (Auto) 8.67 10^3/uL (1.8-7.7) H 12/10/22 22:02 Lymph # (Auto) 3.3 10^3/uL (0.8-4.8) 12/10/22 22:02 [place] # (Auto) 1.2 10^3/uL (0.2-0.9) H 12/10/22 22:02 Eos # (Auto) 0.3 10^3/uL (0.0-0.8) 12/10/22 22:02 Baso # (Auto) 0.1 10^3/uL (0.0-0.1) 12/10/22 22: Nucleated RBC % (auto) 0 % 12/10/22 22: Nucleated RBCs # 0.0 /100WBC 12/10/22 22:02 Sodium 138 mmol/L (136-145) 12/10/22 22:02 Potassium 3.6 mmol/L (3.5-5.1) 12/10/22 22:02 Chloride 105 mmol/L (98-107) 12/10/22 22:02 Carbon Dioxide 22 mmol/L (22-29) 12/10/22 22:02 Anion Gap 14.6 (5-19) 12/10/22 22:02 BUN 11 mg/dL (6-20) 12/10/22 22:02 Creatinine 0.8 mg/dL (0.7-1.2) 12/10/22 22:02 GFR Calculation 106.5 mL/min (90-130) 12/10/22 22:02 Glucose 91 mg/dL (65-115) 12/10/22 22:02 Calculated Osmolality 285 mOsm/kg (285-295) 12/10/22 22:02 Calcium 8.8 mg/dL (8.5-10.5) 12/10/22 22:02 Total Bilirubin 0.2 mg/dL (0.15-1.2) 12/10/22 22:02 AST 15 U/L (0-40) 12/10/22 22:02 ALT 22 U/L (0-41) 12/10/22 22:02 Alkaline Phosphatase 103 U/L (40-130) 12/10/22 22:02 Troponin T Baseline 6 ng/L (0-15) 12/10/22 22:02 Total Protein 6.3 g/dL (6.6-8.7) L 12/10/22 22:02 Albumin 4.2 g/dL (3.5-5.2) 12/10/22 22:02 Globulin 2.1 g/dL (1.3-4.6) 12/10/22 22:02 Lipase 21 U/L (13-60) 12/10/22 22:02 EKG Data EKG 1: I personally reviewed and interpreted this EKG as follows: EKG interpretation date: 12/10/22 EKG interpretation time: 21:47 Interpretation: sinus haile hr [address] or t wave abnormalities qrs 104 qtc 409 Discharge Plan Discharge Patient Disposition: Home Clinical Impression: Chest pain Condition: Stable Prescriptions: No Action cholecalciferol (vitamin D3) 125 mcg (5,000 unit) capsule 125 mcg PO DAILY 30 Days Qty: 30 5RF nitroglycerin 0.4 mg tablet, sublingual 0.4 mg sublingual Q5M PRN (Reason: chest pain) 30 Days Qty: 30 0RF Rx Instructions: do not exceed 3 doses per episode prednisone 10 mg tablets,dose pack See Rx Instructions PO PER PKG DIR Qty: 21 0RF Rx Instructions: PO PER PKG DIR omeprazole 40 mg capsule,delayed release(DR/EC) 40 mg PO DAILY Qty: 30 5RF losartan 25 mg tablet 25 mg PO DAILY Qty: 30 5RF terbinafine HCl 250 mg tablet 250 mg PO DAILY Qty: 90 0RF lansoprazole [Prevacid] 30 mg capsule,delayed release(DR/EC) 30 mg PO DAILY Qty: 30 5RF lisinopril 20 mg tablet 20 mg PO DAILY 30 Days Qty: 30 5RF buspirone 30 mg tablet 30 mg PO BID Qty: 60 5RF cyclobenzaprine 10 mg tablet 10 mg PO BID PRN (Reason: muscle spasm) Qty: 60 5RF ibuprofen 800 mg tablet 800 mg PO Q8H PRN (Reason: pain) 30 Days Qty: 30 5RF Tylenol 325 mg Tablet 325 - 650 mg PO QID PRN (Reason: Pain) aspirin 81 mg tablet,delayed release (DR/EC) 81 mg PO DAILY@0500 Discharge Orders: Discharge ED (Routine); Ordered 12/10/22 Ordered By: Agnieszka Tamayo Referrals: Rhona Armstrong FNP-C [Primary Care Provider] - 1-3 days Discharge Diet: Advance as tolerated Discharge Activity: Resume usual activity Patient Instructions: Chest Pain (ED) Coding Level of Care Code 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
[2022-12-10 22:16] LABS: Basophils # 0.1 10^3/uL (0.0-0.1); Basophils % 0.5 %; Eosinophils # 0.3 10^3/uL (0.0-0.8); Eosinophils % 2.1 %; Hematocrit 43.8 % (42.0-52.0); Hemoglobin 14.7 g/dL (11.7-16.6); Lymphocytes # 3.3 10^3/uL (0.8-4.8); Lymphocytes % 24.2 %; Mean Corpuscular HGB Conc 33.6 g/dL (30.0-36.0); Mean Corpuscular Hemoglobin 29.8 pg (28.0-34.0); Mean Corpuscular Volume 88.7 fl (80-94); Mean Platelet Volume 9.8 fL (7.4-10.4); Monocytes # 1.2 10^3/uL (0.2-0.9); Monocytes % 8.8 %; Neutrophils # 8.67 10^3/uL (1.8-7.7); Neutrophils % 63.9 %; Nucleated Red Blood Cells % 0 %; Platelet Count 340 10^3/cmm (130-400); Red Blood Count 4.94 10^6/uL (4.1-5.3); Red Cell Distribution Width 13.3 % (12.1-15.1); White Blood Count 13.6 10^3/uL (4.0-10.0)
[2022-12-10 22:25] LABS: Troponin(5th) Baseline 6 ng/L (0-15)
[2022-12-10 22:32] LABS: Alanine Aminotransferase 22 U/L (0-41); Albumin Level 4.2 g/dL (3.5-5.2); Alkaline Phosphatase 103 U/L (40-130); Anion Gap 14.6 (5-19); Aspartate Amino Transferase 15 U/L (0-40); Blood Urea Nitrogen 11 mg/dL (6-20); Calcium 8.8 mg/dL (8.5-10.5); Carbon Dioxide 22 mmol/L (22-29); Chloride 105 mmol/L (98-107); Creatinine Clr Calc Pharmacy 123.5513; Globulin 2.1 g/dL (1.3-4.6); Glomerular Filtration Rate 106.5 mL/min (90-130); Glucose 91 mg/dL (65-115); Lipase 21 U/L (13-60); Osmolality Calculated 285 mOsm/kg (285-295); Potassium 3.6 mmol/L (3.5-5.1); Sodium 138 mmol/L (136-145); Total Bilirubin 0.2 mg/dL (0.15-1.2); Total Protein 6.3 g/dL (6.6-8.7)
[2022-12-10 22:55] VITALS: BP 127/86; PULSE 51; RESP 11; O2SAT 96
[2022-12-11 00:04] VITALS: BP 113/89; PULSE 54; O2SAT 97
== END 2022-12-10 23:56 | disposition home or self-care (01) ==
PROVIDERS: Emergency Provider Emergency Medicine; PCP Nurse Practitioner Family
DX: R07.9 Chest pain, unspecified (principal); Z79.82 Long term (current) use of aspirin; I10 Essential (primary) hypertension; F17.210 Nicotine dependence, cigarettes, uncomplicated
CPT/HCPCS: 71045; 80053; 83690; 84484; 85025; 93005; 99285